=== PATIENT | female | born 1950 | race Caucasian/White ===

== ENCOUNTER 2017-12-19 08:40 | Inpatient (IN) ==
--- NOTE | 2017-12-19 11:23 | Emergency Department Note ---
START Narrative - START START: I examined this patient and my medical decision-making was reviewed with the STOCK OR DELIVERY CLERK/PA/Advanced Practice Nurse/Resident Physician. I agree with the documented findings, disposition and treatment plan as described except to the extent set forth below. Patient does have pain over the wound on the lateral distal aspect of the right upper back and I did open the wound and remove the packing and there is very minimal pink coloration around the edges of the wound but no purulence, crepitus , ecchymosis, ecchymosis and the wound does look good and does not look infected. The patient did see Dr. Rey her archives specialist 4 days ago and the care will be further discussed with him as far as ongoing care. She does have some pain with range of motion but does have good range of motion of the knee. While she is lying in bed at this time does not have pain. 1122 I did review the patient's EKG showing normal sinus rhythm with rate of 87 with some nonspecific T-wave changes. This is done as a preoperative EKG on request from orthopedics. [id number]
[2017-12-19] MEDS ORDERED: Naloxone 0.4 MG/ML INJ IVP PRN (14:19)
[2017-12-19 14:25] LABS: Prothrombin Time 10.8 Seconds (9.4-12.1)
[2017-12-19 14:26] LABS: Basophils # 0.1 K/mcL (0.0-0.2); Basophils % 1.2 %; Eosinophils # 0.3 K/mcL (0.0-0.6); Eosinophils % 4.1 %; Hematocrit 45.4 % (35.3-44.9); Hemoglobin 14.4 g/dL (11.5-15.4); Immature Granulocytes % 0.3 % (0-4); Mean Corpuscular HGB Conc 31.7 g/dL (31.6-35.5); Mean Corpuscular Hemoglobin 27.1 pg (28.0-33.3); Mean Corpuscular Volume 85.5 fL (83.0-100.0); Mean Platelet Volume 9.6 fL (9.4-12.4); Monocytes # 0.5 K/mcL (0.0-1.3); Platelet Count 308 K/mcL (140-400); Red Blood Count 5.31 M/mcL (3.82-4.97); Red Cell Distribution Width 15.1 % (11.5-14.5); Segmented Neutrophils % 58.4 %
--- NOTE | 2017-12-19 14:37 | Internal Med History&Physical ---
Date of Encounter: 12/19/17 Time of Encounter: 14:33 Assessment and Plan (1) Femur fracture, right Current visit: Yes Status: Acute S/P ORIF with internal fixation on 08/12. Returns today with acute pain which began overnight. Unable to bare weight d/t pain. Imaging reveals fracture of the femoral plate with increased angulation of the right femur fracture. The patient will need surgical repair. -consult Ortho- Dr. Winston at bedside and plans to taker her to OR on Friday for surgical repair. His recommendation are for ATB coverage for 48 hours prior to surgery -ATB Vanc and Zosyn; Prior wound cultures grew MRSA -pain management with oxycodone -bedrest -apply knee immobilization device Qualifiers: Qualified Code(s): S72.91XA - Unspecified fracture of right femur, initial encounter for closed fracture (2) DVT prophylaxis Current visit: Yes Status: Acute Heparin 5000 units SC BID Internal Medicine - H&P: HPI Chief complaint: pain in RLE, unable to bare weight Admitted From: Home Plans for Post Hospital Care: Home History of present illness: Ms. Wells is a 67 year old female who presents to [facility] today with difficulty ambulating d/t inability to bare weight on her right leg. She has undergone a Right open reduction internal fixation femur fracture on 08/12. She reports that last night she began experiencing intense pain in her right leg with weight baring and with ROM. She denies any new falls or trauma. She notes that she had an appointment today at her wound clinic d/t a chronic wound on her right leg s/p surgery. While attempting to get out of the car and into the hospital (an estimated 50ft walk) it took her 15 minutes d/t intense pain with weight baring. She decided to come to the ED today and was found to have a fracture of the femoral plate with an increased angulation at the prior site of femur fracture. Past Med Surg Social Fam HX - Past Medical History Medical history: arthritis, GERD, osteoporosis Psychiatric history: anxiety, depression - Past Surgical History Surgical History: herniorrhaphy, hysterectomy, knee replacement - Social History Smoking Status: Never smoker Smokeless Tobacco Status: No Alcohol use: none Drug use: none - Family History Mother Adopted: No Family Member Ethnicity: Non- Living Status: Hx Family Cardiac Disorders: Yes Hx Family Respiratory Disorders: No Hx Family Cancer: No Hx Family GI Disorders: No Hx Family Endocrine Disorder: Yes Hx Family Neuromuscular Disorders: No Hx Family Neurologic Disorders: No Hx Family HEENT Disorders: No Hx Family Autoimmune Disorders: No Father Family Member Ethnicity: Non- Living Status: Hx Family Cardiac Disorders: Yes Hx Family Respiratory Disorders: No Hx Family Cancer: Yes Hx Family GI Disorders: No Hx Family Endocrine Disorder: Yes Hx Family Neuromuscular Disorders: No Hx Family Neurologic Disorders: No Hx Family HEENT Disorders: No Hx Family Autoimmune Disorders: No Internal Medicine - H&P: Meds Amitriptyline [Elavil] 50 mg PO HS 08/04/17 [History] Buspirone HCl [Buspar] 5 mg PO TID 08/04/17 [History] Docusate [Colace] 100 mg PO DAILY 08/04/17 [History] Ferrous Sulfate [Iron] 325 mg PO DAILY 08/04/17 [History] Magnesium Oxide [Magnesium] 400 mg PO DAILY 08/04/17 [History] Omeprazole [PriLOSEC] 20 mg PO DAILY 08/04/17 [History] Potassium 99 mg PO DAILY 08/04/17 [History] Ranitidine HCl [Acid Cargo Tank Mechanic] 150 mg PO BID 08/04/17 [History] Zinc Sulfate 220 mg PO DAILY 08/04/17 [History] rOPINIRole [Requip] 1 mg PO HS 08/04/17 [History] Sertraline [Zoloft] 50 mg PO DAILY 12/19/17 [History] 3 Allergy/AdvReac Type Severity Reaction Status Date / Time No Known Allergies Allergy Verified 08/04/17 19:33 All Systems PM: A 10-system review of systems was performed and is negative for pertinent findings except as documented above in the HPI. - Constitutional Constitutional: no chills, no fever(s), no night sweats - Cardiovascular Cardiovascular ROS IM: no chest pain, no diaphoresis, no dyspnea, no lightheadedness, no palpitations, no syncope - Respiratory Respiratory: no cough, no dyspnea, no wheezing, no excessive phlegm production - Musculoskeletal Musculoskeletal ROS IM: as per HPI, arthralgias, limited range of motion, myalgias, no numbness, no tingling - Integumentary Additional comments: Chronic right leg wound s/p ORIF of femoral fracture - Neurological Neurological ROS: no confusion, no convulsions, no focal weakness, no numbness, no tingling, no tremor(s) - Constitutional Vitals: Temp Pulse Resp BP Pulse Ox 98.4 F 81 18 145/94 95 12/19/17 08:42 12/19/17 08:42 12/19/17 08:42 12/19/17 08:42 12/19/17 08:42 General appearance: Present: cooperative, mild distress, A&O X 3, answers questions appropriately - Head Head exam: Present: atraumatic, normocephalic - Eye Pupils: Present: PERRL - Respiratory Respiratory exam: Present: CTAB. Absent: accessory muscle use, rales, rhonchi, wheezes - Cardiovascular Cardiovascular exam: Present: RRR, +S1, +S2. Absent: diastolic murmur, gallop, rubs, systolic murmur - GI/Abdominal GI/Abdominal exam: Present: normal bowel sounds, soft, no peritoneal signs. Absent: distended, tenderness - Extremities Exam Extremities exam: Present: normal capillary refill, tenderness (of Right lateral thigh), warm, radial pulses palpable and symmetrical. Absent: calf tenderness, cyanotic, full ROM, pedal edema - Neurological Exam Neurological exam: Present: alert, oriented X3. Absent: facial droop, speech deficit - Skin Skin exam: Present: dry, intact Additional comments: Chronic open wound on the lateral distal aspect of the right thigh. The wound bed is pink with good margins. No purulent drainage noted. Internal Med - H&P Results - Labs CBC & Chem 7: 12/19/17 14:13 12/19/17 14:13 Labs: Short CBC 12/19/17 Range/Units 14:13 WBC 6.8 (4.3-11.1) K/mcL Hgb 14.4 (11.5-15.4) g/dL Hct 45.4 H (35.3-44.9) % Plt Count 308 (140-400) K/mcL Neutrophils # 4.0 (1.6-8.9) K/mcL - Impressions Impressions Femur X-Ray 12/19/17 12:21 IMPRESSION: 1. Fracture of the femoral plate with increased angulation at the fracture site in the femur. 2. Soft tissue gas again seen laterally overlying the distal femur. D/ / 12/19/2017 13:10:22 Chi Menendez MD / normaay Interpreting Provider: Chi Menendez MD
--- NOTE | 2017-12-19 14:42 | Event Note ---
Date of Encounter: 12/19/17 Time of Encounter: 14:40 Patient was seen and examined. Agree with the H&P as written by Eitan Dos Santos NP. Patient is 67 years old female who presents with difficulty ambulating. Recently had ORIF of her right femur fracture in July. Has been dealing with chronic wound on that side since. Decided to come to the ED where imaging study showed fracture of the femoral plate with increased angulation at the fracture site. Dr. Winston from orthopedics was consulted in the ED and recommended admission with antibiotics with plans to operate on Friday. Patient is hemodynamically stable. We will order an EKG for preop clearance. We will put on antibiotics. Pain control. Check basic labs.
[2017-12-19 14:46] LABS: Alanine Aminotransferase 7 Units/L (7-52); Albumin 4.4 g/dL (3.5-5.7); Albumin/Globulin Ratio 1.7 (1.1-2.2); Alkaline Phosphatase 101 Units/L (34-104); Aspartate Amino Transferase 16 Units/L (13-39); BUN/Creatinine Ratio 12 (6-26); Bilirubin,Total 0.5 mg/dL (0.3-1.0); Blood Urea Nitrogen 12 mg/dL (8-23); Calcium 9.7 mg/dL (8.6-10.3); Carbon Dioxide 25 mEq/L (23-29); Chloride 107 mEq/L (98-107); Globulin 2.6 g/dL (2.4-3.5); Glucose 82 mg/dL (70-105); Osmolality,Calculated 291 (280-300); Potassium 3.8 mEq/L (3.5-5.1); Sodium 141 mEq/L (136-145); eGFR For Non-African Americans 55 (> 60)
--- NOTE | 2017-12-19 14:54 | Orthopedic Consult Note ---
<Geetha Nice - Last Filed: 12/19/17 14:51> Date of Encounter: 12/19/17 Time of Encounter: 14:51 Assessment and Plan (1) Femur fracture, right Current Visit: Yes Status: Acute Discussed treatment plan with patient. Plan for Right Femur Removal of Hardware, Revision Open reduction and internal fixation of Right Femur on FRIDAY with . NPO on Friday after midnight. Pain management. Knee immobilizer needed for support. NWB to RLE. DVT prophylaxis needed - foot pumps. ICE and elevate as tolerated for swelling. Continue with daily dressing changes to Right thigh, along with cleanses. Medical clearance for surgery needed prior to Friday. Consent obtained and reviewed with patient. Patient signed. (2) Status post open reduction with internal fixation of fracture Current Visit: No Status: Acute History of Present Illness Chief complaint: Right Leg Pain HPI: Ms. Wells is a 67 year old female.- difficulty ambulating d/t inability to weightbear on her right leg. s/p Right open reduction internal fixation femur fracture on 08/12. She reports that last night she began experiencing intense pain in her right leg with weight baring and with ROM. She denies any new falls or trauma. She notes that she had an appointment today at her wound clinic d/t a chronic wound on her right leg s/p surgery. Filomena rodriguez attempting to get out of the car and into the hospital (an estimated 50ft walk) it took her 15 minutes d/t intense pain with weight baring. She decided to come to the ED today and was found to have a fracture of the femoral plate with an increased angulation at the prior site of femur fracture. Past Med Surg Social Fam HX - Past Medical History Medical history: arthritis, GERD, osteoporosis Psychiatric history: anxiety, depression - Past Surgical History Surgical History: herniorrhaphy, hysterectomy, knee replacement - Social History Smoking Status: Never smoker Smokeless Tobacco Status: No Alcohol use: none Drug use: none - Family History Mother Adopted: No Family Member Ethnicity: Non- Living Status: Hx Family Cardiac Disorders: Yes Hx Family Respiratory Disorders: No Hx Family Cancer: No Hx Family GI Disorders: No Hx Family Endocrine Disorder: Yes Hx Family Neuromuscular Disorders: No Hx Family Neurologic Disorders: No Hx Family HEENT Disorders: No Hx Family Autoimmune Disorders: No Father Family Member Ethnicity: Non- Living Status: Hx Family Cardiac Disorders: Yes Hx Family Respiratory Disorders: No Hx Family Cancer: Yes Hx Family GI Disorders: No Hx Family Endocrine Disorder: Yes Hx Family Neuromuscular Disorders: No Hx Family Neurologic Disorders: No Hx Family HEENT Disorders: No Hx Family Autoimmune Disorders: No Medications and Allergies Amitriptyline [Elavil] 50 mg PO HS 08/04/17 [History] Buspirone HCl [Buspar] 5 mg PO TID 08/04/17 [History] Docusate [Colace] 100 mg PO DAILY 08/04/17 [History] Ferrous Sulfate [Iron] 325 mg PO DAILY 08/04/17 [History] Magnesium Oxide [Magnesium] 400 mg PO DAILY 08/04/17 [History] Omeprazole [PriLOSEC] 20 mg PO DAILY 08/04/17 [History] Potassium 99 mg PO DAILY 08/04/17 [History] Ranitidine HCl [Acid Pet Store Merchandiser] 150 mg PO BID 08/04/17 [History] Zinc Sulfate 220 mg PO DAILY 08/04/17 [History] rOPINIRole [Requip] 1 mg PO HS 08/04/17 [History] Sertraline [Zoloft] 50 mg PO DAILY 12/19/17 [History] 3 Allergy/AdvReac Type Severity Reaction Status Date / Time No Known Allergies Allergy Verified 08/04/17 19:33 All Systems Reviewed: The remainder of the systems were reviewed and are negative Physical Exam - Constitutional Vitals: Temp Pulse Resp BP Pulse Ox 98.4 F 81 18 145/94 95 12/19/17 08:42 12/19/17 08:42 12/19/17 08:42 12/19/17 08:42 12/19/17 08:42 Results - Labs Result Diagrams: 12/19/17 14:13 12/19/17 14:13 Labs: Abnormal lab results RBC 5.31 M/mcL (3.82-4.97) H 12/19/17 14:13 Hct 45.4 % (35.3-44.9) H 12/19/17 14:13 MCH 27.1 pg (28.0-33.3) L 12/19/17 14:13 RDW 15.1 % (11.5-14.5) H 12/19/17 14:13 Est GFR (Non-Af Amer) 55 (> 60) L 12/19/17 14:13 H & H 12/19/17 Range/Units 14:13 Hgb 14.4 (11.5-15.4) g/dL Hct 45.4 H (35.3-44.9) % All other labs normal. Consult Discharge Plan - Plan Referrals: Ashlie Shea, PROFESSOR OF MECHANICAL ENGINEERING [Primary Care Provider] - <Elbert Winston Eleno - Last Filed: 12/19/17 15:58> Date of Encounter: 12/19/17 History of Present Illness HPI: Patient was seen in wound care on Friday by Dr. Rey who did a large excision of the small open area. On physical exam the patient is alert and oriented 3 no acute distress Right lower extremity is neurovascularly intact Patient has a 2 x 3 cm open area on the distal aspect of the right lower thigh lateral side. This was placed in a sterile dressing. X-rays were reviewed and showed with the patient patient had a comminuted fracture periprosthetic back in July of last year she appears to have healed the distal comminuted portion with the implant well fixed. She has a angulated midshaft fracture with fracture of the femoral plate. The patient is recommended for removal of hardware and revision open reduction internal fixation. Patient will also undergo a wide excision with wound closure of the open area. Patient will be admitted for IV antibiotics to help sterilize the field and undergo surgery Friday morning. Appropriate equipment will be ordered and to deal with this complicated problem. We reviewed the risks and benefits as well as recovery. All questions were answered. The patient agreed to this treatment plan and appeared to understand the plan is reviewed. All Systems Reviewed: The remainder of the systems were reviewed and are negative Physical Exam - Constitutional Vitals: Temp Pulse Resp BP Pulse Ox 98.3 F 76 16 155/96 94 12/19/17 15:53 12/19/17 15:53 12/19/17 15:53 12/19/17 15:53 12/19/17 15:53 Results - Labs Result Diagrams: 12/19/17 14:13 12/19/17 14:13 Labs: Abnormal lab results RBC 5.31 M/mcL (3.82-4.97) H 12/19/17 14:13 Hct 45.4 % (35.3-44.9) H 12/19/17 14:13 MCH 27.1 pg (28.0-33.3) L 12/19/17 14:13 RDW 15.1 % (11.5-14.5) H 12/19/17 14:13 Est GFR (Non-Af Amer) 55 (> 60) L 12/19/17 14:13 H & H 12/19/17 Range/Units 14:13 Hgb 14.4 (11.5-15.4) g/dL Hct 45.4 H (35.3-44.9) % All other labs normal.
[2017-12-19] MEDS ORDERED: Vancomycin 1 EACH in 0.9 % Sodium Chloride 250 ML IVPB SCH (15:00)
[2017-12-19] MEDS: *HR* OxyCODONE/APAP 5/325 TABLET PO PRN (15:54)
[2017-12-19] MEDS: *HR* Heparin 5,000 UNIT/ML VIAL SQ SCH (17:05)
--- NOTE | 2017-12-19 17:48 | Electrocardiograph Report ---
[place] [id number] Test Date: 2017-12-19 Pat Name: Flaca Wells Department: 102 Room: [facility] Gender: F Mechanical Maintenance: Zahra : 1950 Requested By: Garry Salinas Order Number: [id number] Reading MD: Harleen Pascal Measurements Intervals [place] Rate: 87 P: 74 OR: 142 QRS: 81 QRSD: 102 T: 69 QT: 385 QTc: 429 Interpretive Statements SINUS RHYTHM NONSPECIFIC T-WAVE ABNORMALITY Electronically Signed On 12-19-2017 17:47:09 EST by Harleen Pascal
[2017-12-19] MEDS: Famotidine 20 MG TABLET PO SCH (20:08)
[2017-12-19] MEDS: rOPINIRole 1 MG TABLET PO SCH (20:08)
[2017-12-20] MEDS: *HR* OxyCODONE/APAP 5/325 TABLET PO PRN (00:59)
[2017-12-20 02:02] LABS: Hematocrit 39.5 % (35.3-44.9); Mean Corpuscular HGB Conc 31.4 g/dL (31.6-35.5); Mean Corpuscular Hemoglobin 27.1 pg (28.0-33.3); Mean Corpuscular Volume 86.2 fL (83.0-100.0); Platelet Count 279 K/mcL (140-400); Red Blood Count 4.58 M/mcL (3.82-4.97); Red Cell Distribution Width 15.3 % (11.5-14.5)
[2017-12-20 02:03] LABS: Hemoglobin 12.4 g/dL (11.5-15.4)
[2017-12-20 02:23] LABS: Calcium 8.6 mg/dL (8.6-10.3); Potassium 3.6 mEq/L (3.5-5.1)
[2017-12-20] MEDS: *HR* Heparin 5,000 UNIT/ML VIAL SQ SCH ×2 (05:56→16:36)
[2017-12-20] MEDS ORDERED: *HR* OxyCODONE Immed Rel 5 MG TABLET PO PRN (07:46)
--- NOTE | 2017-12-20 07:46 | Orthopedics Progress Note ---
Date of Encounter: 12/20/17 Time of Encounter: 07:45 Subjective Interval history: Patient seen this morning for surgery Friday on IV antibiotics AND transferred patient resting comfortably plan reviewed Objective Vital signs: Vital Signs Temp Pulse Resp BP Pulse Ox 12/20/17 05:12 97.6 F 84 17 109/80 94 12/20/17 00:40 97.9 F 87 17 111/70 96 12/19/17 18:50 98.1 F 93 18 107/74 94 12/19/17 15:53 98.3 F 76 16 155/96 94 Intake and Output 12/19/17 12/19/17 12/20/17 15:59 23:59 07:59 Intake Total 0 / 0 100 / 100 400 / 400 Balance 0 / 0 100 / 100 400 / 400 Intake: IV Fluids 100 / 100 Zosyn 3.375 GM In 0.9 % Sodium 100 / 100 Chloride 100 ML @ 25 mls/hr IVPB Q8HR [facility] Rx#:[id number] Oral 0 / 0 400 / 400 Other: # Voids 1 - Labs CBC & BMP: 12/20/17 01:44 12/20/17 01:44 Labs: Abnormal lab results MCH 27.1 pg (28.0-33.3) L 12/20/17 01:44 MCHC 31.4 g/dL (31.6-35.5) L 12/20/17 01:44 RDW 15.3 % (11.5-14.5) H 12/20/17 01:44 Chloride 110 mEq/L (98-107) H 12/20/17 01:44 Est GFR ( Amer) 55 (> 60) L 12/20/17 01:44 Est GFR (Non-Af Amer) 45 (> 60) L 12/20/17 01:44 Consult Discharge Plan - Plan Referrals: Ashlie Shea, TANKERMAN [Primary Care Provider] -
--- NOTE | 2017-12-20 08:42 | Internal Med Progress Note ---
Date of Encounter: 12/20/17 Time of Encounter: 09:21 - Assessment and plan (1) Femur fracture, right Current Visit: Yes Status: Acute Assessment and plan: Fracture of femoral plate. Prior ORIF in July 2017. Open wound present at right lateral thigh nonhealing from prior surgery. Orthopedics following. Recommend IV antibiotics at this time. Plan for surgery on Friday. Continue supportive care. Pain control. Qualifiers: Encounter type: initial encounter Femur location: distal Fracture type: closed Fracture morphology: unspecified fracture morphology Qualified Code(s ): S72.401A - Unspecified fracture of lower end of right femur, initial encounter for closed fracture (2) DVT prophylaxis Current Visit: Yes Status: Acute Assessment and plan: With subcutaneous heparin - Subjective Interval history: Patient is feeling better today. Continues to have pain but well controlled. Denies any fever or chills overnight. No nausea or vomiting. - Constitutional Vitals: Temp Pulse Resp BP Pulse Ox 97.6 F 76 16 107/68 96 12/20/17 07:49 12/20/17 07:49 12/20/17 07:49 12/20/17 07:49 12/20/17 07:49 General appearance: Present: cooperative, mild distress, A&O X 3, answers questions appropriately - Neck Neck exam general surgery: Present: supple, trachea midline. Absent: lymphadenopathy - Respiratory Respiratory exam: Present: CTAB. Absent: accessory muscle use, rales, rhonchi, wheezes - Cardiovascular Cardiovascular exam: Present: RRR, +S1, +S2. Absent: diastolic murmur, gallop, rubs, systolic murmur - GI/Abdominal GI/Abdominal exam: Present: normal bowel sounds, soft, no peritoneal signs. Absent: distended, tenderness - Extremities Exam Extremities exam: Present: warm, radial pulses palpable and symmetrical. Absent : calf tenderness, cyanotic, pedal edema Additional comments: Open wound in right thigh at prior surgical site. Clean base. No discharge noted. - Neurological Exam Neurological exam: Present: CN II-XII intact, oriented X3, no focal deficits, strengths equal and symetr throughout. Absent: facial droop, speech deficit Internal Medicine: Result - Labs CBC & Chem 7: 12/20/17 01:44 12/20/17 01:44 Labs: Short CBC 12/19/17 12/20/17 Range/Units 14:13 01:44 WBC 6.8 5.1 (4.3-11.1) K/mcL Hgb 14.4 12.4 D (11.5-15.4) g/dL Hct 45.4 H 39.5 (35.3-44.9) % Plt Count 308 279 (140-400) K/mcL Neutrophils # 4.0 (1.6-8.9) K/mcL BMP 12/19/17 12/20/17 14:13 01:44 Sodium 141 141 Potassium 3.8 3.6 Chloride 107 110 H Carbon Dioxide 25 24 BUN 12 16 Creatinine 1.01 1.19 Glucose 82 104 Calcium 9.7 8.6 Liver Function 12/19/17 Range/Units 14:13 Total Bilirubin 0.5 (0.3-1.0) mg/dL AST 16 (13-39) Units/L ALT 7 (7-52) Units/L Alkaline Phosphatase 101 (34-104) Units/L Albumin 4.4 (3.5-5.7) g/dL - ABG Interpretation ABG results: PT/INR, D-dimer PT 10.8 Seconds (9.4-12.1) 12/19/17 14:13 Consult Discharge Plan - Plan Referrals: Ashlie Shea, TRACY [Primary Care Provider] -
[2017-12-20] MEDS: Zinc Sulfate 220 MG CAPSULE PO SCH (09:00)
[2017-12-20] MEDS: Famotidine 20 MG TABLET PO SCH ×2 (09:00→20:15)
[2017-12-20] MEDS: Magnesium Oxide 400 MG TABLET PO SCH (09:00)
[2017-12-20] MEDS: Piperacillin/Tazobactam 3.375 GM in 0.9 % Sodium Chloride Mini Bag 100 ML IVPB SCH ×2 (09:01→16:36)
[2017-12-20] MEDS: (Potassium [Potassium] 99 MG) PO SCH (09:01)
[2017-12-20] MEDS ORDERED: Piperacillin/Tazobactam 3.375 GM VIAL ONE (16:32)
[2017-12-20] MEDS: rOPINIRole 1 MG TABLET PO SCH (20:15)
[2017-12-21] MEDS: Piperacillin/Tazobactam 3.375 GM in 0.9 % Sodium Chloride Mini Bag 100 ML IVPB SCH ×4 (00:12→23:45)
[2017-12-21] MEDS: *HR* Heparin 5,000 UNIT/ML VIAL SQ SCH ×2 (06:32→17:40)
[2017-12-21] MEDS: Magnesium Oxide 400 MG TABLET PO SCH (08:57)
[2017-12-21] MEDS: Famotidine 20 MG TABLET PO SCH ×2 (08:58→21:23)
[2017-12-21] MEDS: (Potassium [Potassium] 99 MG) PO SCH (08:58)
[2017-12-21] MEDS: Zinc Sulfate 220 MG CAPSULE PO SCH (08:58)
--- NOTE | 2017-12-21 09:26 | Internal Med Progress Note ---
Date of Encounter: 12/21/17 Time of Encounter: 09:00 - Assessment and plan (1) Femur fracture, right Current Visit: Yes Status: Acute Assessment and plan: Plan surgery tomorrow. Continue IV antibiotics per orthopedics recommendations. Moderate risk for complications. From a medical standpoint, patient is cleared for surgery at this time. She has intermediate risk for complications from anesthesia and surgery. Qualifiers: Encounter type: initial encounter Femur location: distal Fracture type: closed Fracture morphology: unspecified fracture morphology Qualified Code(s ): S72.401A - Unspecified fracture of lower end of right femur, initial encounter for closed fracture (2) DVT prophylaxis Current Visit: Yes Status: Acute Assessment and plan: Continue subcutaneous heparin - Subjective Interval history: Patient is doing well. Sitting up in bed and eating breakfast. Pain in right leg is well controlled - Constitutional Vitals: Temp Pulse Resp BP Pulse Ox 97.9 F 87 16 154/86 95 12/21/17 06:41 12/21/17 06:41 12/21/17 06:41 12/21/17 06:41 12/21/17 06:41 General appearance: Present: cooperative, mild distress, A&O X 3, obese, answers questions appropriately - Neck Neck exam general surgery: Present: supple, trachea midline. Absent: lymphadenopathy - Respiratory Respiratory exam: Present: CTAB. Absent: accessory muscle use, rales, rhonchi, wheezes - Cardiovascular Cardiovascular exam: Present: RRR, +S1, +S2. Absent: diastolic murmur, gallop, rubs, systolic murmur - GI/Abdominal GI/Abdominal exam: Present: normal bowel sounds, soft, no peritoneal signs. Absent: distended, tenderness - Extremities Exam Extremities exam: Present: tenderness (Just above the right knee), warm, radial pulses palpable and symmetrical. Absent: calf tenderness, cyanotic, pedal edema - Neurological Exam Neurological exam: Present: oriented X3, no focal deficits. Absent: facial droop, speech deficit Internal Medicine: Result - Labs CBC & Chem 7: 12/20/17 01:44 12/20/17 01:44 - ABG Interpretation ABG results: PT/INR, D-dimer PT 10.8 Seconds (9.4-12.1) 12/19/17 14:13 Consult Discharge Plan - Plan Referrals: Ashlie Shea, NURSING STUDENT [Primary Care Provider] -
--- NOTE | 2017-12-21 17:48 | Orthopedics Progress Note ---
Date of Encounter: 12/21/17 Time of Encounter: 17:46 Subjective Principal diagnosis: Femur fracture Interval history: The patient is without complaints. Afebrile vital signs are stable. Has dressing to right lower extremity. Neurovascularly intact with regard to bilateral lower extremities. Assessment :stable. Plan mobilize ,continue analgesics, plan for surgical intervention per Dr. Winston in a.m. Objective Vital signs: Vital Signs Temp Pulse Resp BP Pulse Ox 12/21/17 14:08 97.9 F 87 16 126/87 95 12/21/17 11:07 97.7 F 84 16 123/83 96 12/21/17 06:41 97.9 F 87 16 154/86 95 12/20/17 23:27 97.8 F 84 17 152/91 94 12/20/17 18:46 98.4 F 77 17 127/83 94 Intake and Output 12/21/17 12/21/17 12/21/17 07:59 15:59 23:59 Intake Total 100 / 100 500 / 500 Output Total 550 / 550 Balance 100 / 100 -50 / -50 Intake: IV Fluids 100 / 100 100 / 100 Zosyn 3.375 GM In 0.9 % Sodium 100 / 100 100 / 100 Chloride (Mini-Bag +) 100 ML @ 25 mls/hr IVPB Q8HR [facility] Rx#: [id number] Oral 400 / 400 Output: Urine 550 / 550 Other: Meal Lunch Percent of Meal Consumed 75% Stool Size Moderate Stool Consistency formed Stool Color Brown - Labs CBC & BMP: 12/20/17 01:44 12/20/17 01:44 Labs: Abnormal lab results MCH 27.1 pg (28.0-33.3) L 12/20/17 01:44 MCHC 31.4 g/dL (31.6-35.5) L 12/20/17 01:44 RDW 15.3 % (11.5-14.5) H 12/20/17 01:44 Chloride 110 mEq/L (98-107) H 12/20/17 01:44 Est GFR ( Amer) 55 (> 60) L 12/20/17 01:44 Est GFR (Non-Af Amer) 45 (> 60) L 12/20/17 01:44 Consult Discharge Plan - Plan Referrals: Ashlie Shea, MICROELECTRONICS TECHNICIAN [Primary Care Provider] -
--- NOTE | 2017-12-21 19:12 | Anesthesia Evaluation PreOp ---
Date of Encounter: 12/21/17 Time of Encounter: 19:10 - Past History Planned Operation: Removal Hardware, ORIF Right Femur Revision Cardiac History: Denies any Significant Hx Pulmonary History: Snore, ANA Dx (recently diagnosed) SKIAGRAPHER History: Other (RLS) Other Medical History: GERD, Other (RA, anxiety/depression) Anesthesia History: Past Anesthesia (hysterectomy), Problems (PONV) Alcohol Use: none Drug use: none Medications and Allergies Amitriptyline [Elavil] 50 mg PO HS 08/04/17 [History] Buspirone HCl [Buspar] 5 mg PO TID 08/04/17 [History] Docusate [Colace] 100 mg PO DAILY 08/04/17 [History] Ferrous Sulfate [Iron] 325 mg PO DAILY 08/04/17 [History] Magnesium Oxide [Magnesium] 400 mg PO DAILY 08/04/17 [History] Omeprazole [PriLOSEC] 20 mg PO DAILY 08/04/17 [History] Potassium 99 mg PO DAILY 08/04/17 [History] Ranitidine HCl [Acid Manager [place]] 150 mg PO BID 08/04/17 [History] Zinc Sulfate 220 mg PO DAILY 08/04/17 [History] rOPINIRole [Requip] 1 mg PO HS 08/04/17 [History] Sertraline [Zoloft] 50 mg PO DAILY 12/19/17 [History] 3 Allergy/AdvReac Type Severity Reaction Status Date / Time No Known Allergies Allergy Verified 08/04/17 19:33 - Meds/Allergy Pre-op Review Medications Reviewed: Yes Allergies Reviewed: Yes Beta Blockers on Current Med List: No Anesthesia Results - Labs 12/20/17 01:44 12/20/17 01:44 - Imaging EKG: report reviewed (12/19/2017 SINUS RHYTHM NONSPECIFIC T-WAVE ABNORMALITY) Additional studies: Echocardiogram Date of Study: 08/05/2017 Impressions: LVEF 60-65%. Normal LV chamber size, wall thickness and function. Mild left ventricular diastolic dysfunction. Mildly dilated right ventricle with normal function. Mild tricuspid regurgitation. Estimated RVSP is 56 mmHg. Severe pulmonary hypertension. Anesthesia Exam Vital Signs/O2 Sat, Most Current Temp Pulse Resp BP Pulse Ox 97.9 F 87 16 126/87 95 12/21/17 14:08 12/21/17 14:08 12/21/17 14:08 12/21/17 14:08 12/21/17 14:08 Height: 5'1'' Weight: 186 lbs NPO (# of Hours): 8 Pain Scale: 0 (at rest) Pain Scale Used: Numeric (1 - 10) - HEENT Pupil (Motor): EOMI Mallampati: II Teeth: Edentulous Oral Opening: Greater than 3 - SKIAGRAPHER LOC: Oriented SKIAGRAPHER Motor: Normal RUE, Normal LUE, Normal RLE, Normal LLE, Normal Face SKIAGRAPHER Sensory: Normal: RUE, LUE, RLE, LLE, Face - Cardiac Rhythm: Regular Murmur: None - Pulmonary Breath Sounds: bilateral Clear Respiratory Effort: Symmetrical Anesthesia Assess/Plan ASA Score: 2 Modified [place] Scale for Level of Consciousness: Cooperative, oriented, and tranquil Anesthetic Plan: General, Regional Monitoring Plan: Standard Monitors Recovery Plan: PACU
[2017-12-21] MEDS: rOPINIRole 1 MG TABLET PO SCH (21:23)
[2017-12-22 00:46] LABS: Hemoglobin 12.8 g/dL (11.5-15.4)
[2017-12-22] MEDS: *HR* Heparin 5,000 UNIT/ML VIAL SQ SCH ×2 (04:04→19:01)
--- NOTE | 2017-12-22 06:41 | Orthopedics Progress Note ---
Date of Encounter: 12/22/17 Time of Encounter: 06:41 Subjective Principal diagnosis: Femur fracture Interval history: Patient seen this morning for surgery today all questions answered. Objective Vital signs: Vital Signs Temp Pulse Resp BP Pulse Ox 12/22/17 06:18 98.6 F 86 18 137/84 94 12/22/17 04:21 98.3 F 97 17 161/80 96 12/22/17 00:13 98.2 F 99 18 160/85 98 12/21/17 19:20 98.5 F 102 18 168/89 95 12/21/17 14:08 97.9 F 87 16 126/87 95 12/21/17 11:07 97.7 F 84 16 123/83 96 Intake and Output 12/21/17 12/21/17 12/22/17 15:59 23:59 07:59 Intake Total 500 / 500 450 / 450 100 / 100 Output Total 550 / 550 950 / 950 250 / 250 Balance -50 / -50 -500 / -500 -150 / -150 Intake: IV Fluids 100 / 100 100 / 100 100 / 100 Zosyn 3.375 GM In 0.9 % Sodium 100 / 100 100 / 100 100 / 100 Chloride (Mini-Bag +) 100 ML @ 25 mls/hr IVPB Q8HR [facility] Rx#: [id number] Oral 400 / 400 350 / 350 0 / 0 Output: Urine 550 / 550 950 / 950 250 / 250 Other: Meal Lunch Dinner Percent of Meal Consumed 75% 100% Stool Size Moderate Large Stool Consistency formed loose soft Stool Color Brown # Voids 1 # Bowel Movements 1 Weight 87.543 kg Patient Weight 12/22/17 23:59 Weight 87.543 kg - Labs CBC & BMP: 12/22/17 00:32 12/20/17 01:44 Labs: Abnormal lab results MCH 27.1 pg (28.0-33.3) L 12/20/17 01:44 MCHC 31.4 g/dL (31.6-35.5) L 12/20/17 01:44 RDW 15.3 % (11.5-14.5) H 12/20/17 01:44 Chloride 110 mEq/L (98-107) H 12/20/17 01:44 Est GFR ( Amer) 55 (> 60) L 12/20/17 01:44 Est GFR (Non-Af Amer) 45 (> 60) L 12/20/17 01:44 - VTE Documentation of Mechanical Device: Venous foot pump, device Consult Discharge Plan - Plan Referrals: Ashlie Shea, TRACY [Primary Care Provider] -
[2017-12-22] MEDS ORDERED: Ethanol\\Acetic Acid\\Na Ace\\Ben 1,000 ML IRRIG.SOLN IR ONE ×2 (07:22→14:17)
[2017-12-22] MEDS ORDERED: *HR* Propofol 200 MG/20 ML VIAL IVP ONE ×2 (07:24→12:14)
[2017-12-22] MEDS ORDERED: *HR* FentaNYL (PF) 100 MCG/2 ML VIAL ONE ×2 (07:24→12:14)
[2017-12-22] MEDS ORDERED: *HR* Succinylcholine 200 MG/10 ML VIAL IVP ONE (07:26)
[2017-12-22] MEDS ORDERED: Lidocaine -MPF 2% 2 ML VIAL ONE ×4 (07:26→12:32)
[2017-12-22] MEDS ORDERED: Ketamine *HR* 500 MG/10 ML MDV ONE (07:27)
[2017-12-22] MEDS ORDERED: *HR* Morphine Sulfate/PF 10 MG/10 ML AMPUL ONE (07:27)
[2017-12-22] MEDS ORDERED: Lidocaine -MPF 4% 5 ML AMPUL ONE (07:29)
[2017-12-22] MEDS ORDERED: MORPHINE SUL Oral CONC 10 MG/0.5 ML ORAL.SYG SL PRN ×2 (07:32→17:36)
[2017-12-22] MEDS ORDERED: *HR* Labetalol 20 MG/4 ML SYRINGE IVP PRN (07:32)
[2017-12-22] MEDS ORDERED: *HR* Promethazine 25 MG/ML VIAL IVP PRN ×2 (07:32→17:36)
[2017-12-22] MEDS ORDERED: *HR* OxyCODONE Immed Rel 5 MG TABLET PO PRN ×3 (07:32→17:36)
[2017-12-22] MEDS ORDERED: Acetaminophen IV 1,000 MG/100 ML INFUS..BTL ONE (07:36)
[2017-12-22] MEDS ORDERED: Scopolamine Patch 1.5 MG PATCH.TD72 TD ONE (07:36)
[2017-12-22] MEDS ORDERED: *HR* FentaNYL PATCH 25 MCG PATCH TD SCH (07:45)
--- NOTE | 2017-12-22 08:07 | Orthopedic Operative Note ---
Date of procedure: 12/22/17 Pre-op diagnosis: Right femur nonunion Post-op diagnosis: same Procedure: Patient brought to the operating room placed on the operating table after heart monitor was hooked up patient noted to be in trigeminy. This is a new onset change and rhythm. Case was discussed with cardiology patient was transferred to holding area. Anesthesia: none Surgeon: Elbert Winston Was there an assistant director of security present: No Estimated blood loss (cc): 0 Condition: stable Disposition: same day
--- NOTE | 2017-12-22 09:34 | Orthopedics Progress Note ---
Date of Encounter: 12/22/17 Time of Encounter: 09:33 Subjective Principal diagnosis: Femur fracture Interval history: Reviewed the case this morning after the events in the operating room with the anesthesia provide in holding after transfer from the OR the patient is back in sinus rhythm. The patient is an urgent surgery with a combination of the nonunion failure fracture fixation and open wound. This was discussed with anesthesia as well as tile and marble installer earlier. Objective Vital signs: Vital Signs Temp Pulse Resp BP Pulse Ox 12/22/17 06:18 98.6 F 86 18 137/84 94 12/22/17 04:21 98.3 F 97 17 161/80 96 12/22/17 00:13 98.2 F 99 18 160/85 98 12/21/17 19:20 98.5 F 102 18 168/89 95 12/21/17 14:08 97.9 F 87 16 126/87 95 12/21/17 11:07 97.7 F 84 16 123/83 96 Intake and Output 12/21/17 12/22/17 12/22/17 23:59 07:59 15:59 Intake Total 450 / 450 100 / 100 Output Total 950 / 950 250 / 250 Balance -500 / -500 -150 / -150 Intake: IV Fluids 100 / 100 100 / 100 Zosyn 3.375 GM In 0.9 % Sodium 100 / 100 100 / 100 Chloride (Mini-Bag +) 100 ML @ 25 mls/hr IVPB Q8HR [facility] Rx#: [id number] Oral 350 / 350 0 / 0 Output: Urine 950 / 950 250 / 250 Other: Meal Dinner Percent of Meal Consumed 100% Stool Size Large Stool Consistency loose soft # Voids 1 # Bowel Movements 1 Weight 87.543 kg Patient Weight 12/22/17 23:59 Weight 87.543 kg - Labs CBC & BMP: 12/22/17 00:32 12/20/17 01:44 Labs: Abnormal lab results MCH 27.1 pg (28.0-33.3) L 12/20/17 01:44 MCHC 31.4 g/dL (31.6-35.5) L 12/20/17 01:44 RDW 15.3 % (11.5-14.5) H 12/20/17 01:44 Chloride 110 mEq/L (98-107) H 12/20/17 01:44 Est GFR ( Amer) 55 (> 60) L 12/20/17 01:44 Est GFR (Non-Af Amer) 45 (> 60) L 12/20/17 01:44 - VTE Documentation of Mechanical Device: Venous foot pump, device Consult Discharge Plan - Plan Referrals: Ashlie Shea, [employer] [Primary Care Provider] -
[2017-12-22] MEDS: Famotidine 20 MG TABLET PO SCH ×2 (10:08→21:31)
[2017-12-22] MEDS: (Potassium [Potassium] 99 MG) PO SCH (10:08)
[2017-12-22] MEDS: Magnesium Oxide 400 MG TABLET PO SCH (10:08)
[2017-12-22] MEDS: Zinc Sulfate 220 MG CAPSULE PO SCH (10:09)
--- NOTE | 2017-12-22 10:10 | Cardiology Consult Note ---
Date of Encounter: 12/22/17 Time of Encounter: 10:02 Assessment and Plan (1) Chest pain Current Visit: Yes Status: Acute Recent episode a week ago, atypical with PVCs, ischemic work up if surgery not urgent, ASA 81 mg daily after surgery Qualifiers: Chest pain type: unspecified Qualified Code(s): R07.9 - Chest pain, unspecified (2) Pre-operative cardiovascular examination Current Visit: No Status: Acute High risk due to Severe HTN on ECHO 2017 and Chest pain Patient can proceed to surgery if urgent If patient is to have non urgent surgery would recommend NST and ECHO Will discuss with Dr. Winston (3) Moderate to severe pulmonary hypertension Current Visit: No Status: Acute Severe Pul HTN on ECHO places patient at high risk for morbidity and mortality Pulmonary work up as an outpatient Discussion w patient/family: The assessment and plan as outlined above was discussed with the patient and/or family members who expressed understanding and agreement. All questions were answered. Thank you for involving us in the care of your patient. Please call with any questions. History of Present Illness Consult date: 12/22/17 Consult reason: Cardiac Clearance Chief complaint: PVCs History of present illness: Ms. Wells is a 67 year old female with h/o ANA, Severe pulm HTN and recent trigeminy on telemetry strips in preperation to have knee surgery. Patient denies any palpitations today in preperation to have surgery but admits to chest pain over last week. Her daughter and sister present in the room confirmed on and off RSCP over the last week with no aggravation or relieving factors. She has not had any recent ischemic work up but did have an ECHO last year. Patients functional capacity cannot be obtained due to inability to walk on knee. She describes PASTOR and relates it to her difficulty walking. Noted on her ECHO was a presevred EF however she also is found to have severe Pulm HTN. Her Pulm HTN may or may not be the cause of her chest pain. Dr. Winston stated surgery is urgent and if so no further work up is needed and patient should proceed with surgery. Her risk of cardiac events is high due to her severe pulm HTN and recent chest pain. If the patient was not proceeding to surgery she would require an ischemic work up. Will discuss findings with Dr. Winston Past Med Surg Social Fam HX - Past Medical History Medical history: arthritis, GERD, osteoporosis Psychiatric history: anxiety, depression - Past Surgical History Surgical History: herniorrhaphy, hysterectomy, knee replacement - Social History Smoking Status: Never smoker Smokeless Tobacco Status: No Alcohol use: none Drug use: none - Family History Mother Adopted: No Family Member Ethnicity: Non- Living Status: Hx Family Cardiac Disorders: Yes Hx Family Respiratory Disorders: No Hx Family Cancer: No Hx Family GI Disorders: No Hx Family Endocrine Disorder: Yes Hx Family Neuromuscular Disorders: No Hx Family Neurologic Disorders: No Hx Family HEENT Disorders: No Hx Family Autoimmune Disorders: No Father Family Member Ethnicity: Non- Living Status: Hx Family Cardiac Disorders: Yes Hx Family Respiratory Disorders: No Hx Family Cancer: Yes Hx Family GI Disorders: No Hx Family Endocrine Disorder: Yes Hx Family Neuromuscular Disorders: No Hx Family Neurologic Disorders: No Hx Family HEENT Disorders: No Hx Family Autoimmune Disorders: No Medications and Allergies Amitriptyline [Elavil] 50 mg PO HS 08/04/17 [History] Buspirone HCl [Buspar] 5 mg PO TID 08/04/17 [History] Docusate [Colace] 100 mg PO DAILY 08/04/17 [History] Ferrous Sulfate [Iron] 325 mg PO DAILY 08/04/17 [History] Magnesium Oxide [Magnesium] 400 mg PO DAILY 08/04/17 [History] Omeprazole [PriLOSEC] 20 mg PO DAILY 08/04/17 [History] Potassium 99 mg PO DAILY 08/04/17 [History] Ranitidine HCl [Acid Division Plant Engineer] 150 mg PO BID 08/04/17 [History] Zinc Sulfate 220 mg PO DAILY 08/04/17 [History] rOPINIRole [Requip] 1 mg PO HS 08/04/17 [History] Sertraline [Zoloft] 50 mg PO DAILY 12/19/17 [History] 3 Allergy/AdvReac Type Severity Reaction Status Date / Time No Known Allergies Allergy Verified 08/04/17 19:33 All Systems Review: The remainder of the systems were reviewed and are negative Physical Examination Vital Signs, Last 4 Hours Temp Pulse Resp BP Pulse Ox 12/22/17 06:18 98.6 F 86 18 137/84 94 General: Conversant, No Apparent Distress HEENT: Atraumatic, Normocephaly, Mucus Membranes Moist Neck: No JVD, Normal carotid pulses Cardiac: Reg Rate and Rhythm, Normal S1 and S2, No Murmur Lungs: Normal Breath Sounds, No Wheeze, Rales, Rhonchi Neuro: Alert and responsive, No focal deficits noted Abdomen: Soft, Non-Tender Skin: No rashes noted on visualized skin Musculoskeletal: No Chest Wall Tenderness Extremities: No Clubbing, No Cyanosis, No Edema, Normal Pulses Results 12/22/17 00:32 12/20/17 01:44 Lab Results 12/22/17 00:32 Hgb 12.8 Hct 40.0 Consult Discharge Plan - Plan Referrals: Ashlie Shea, [employer] FILLER [Primary Care Provider] -
[2017-12-22] MEDS: Piperacillin/Tazobactam 3.375 GM in 0.9 % Sodium Chloride Mini Bag 100 ML IVPB SCH ×2 (10:16→23:36)
[2017-12-22] MEDS ORDERED: Dexamethasone 4 MG/ML VIAL ONE (12:14)
[2017-12-22] MEDS ORDERED: Ondansetron 4 MG/2 ML VIAL ONE (12:14)
[2017-12-22] MEDS ORDERED: *HR* Midazolam HCl 2 MG/2 ML VIAL ONE (12:14)
[2017-12-22] MEDS ORDERED: Ketorolac 30 MG/ML VIAL ONE (12:15)
[2017-12-22] MEDS ORDERED: *HR* PHENYLEPHRINE 1,000 MCG/10 ML SYRINGE IVP ONE ×5 (12:35→16:27)
[2017-12-22] MEDS ORDERED: Propofol 500 MG/50 ML INFUS..BTL ONE (12:38)
[2017-12-22] MEDS ORDERED: EPHEDrine 50 MG/ML VIAL ONE ×2 (13:51→14:13)
[2017-12-22] MEDS ORDERED: ceFAZolin 1,000 MG in Water for inj. (sterile) 20 ML 10 ML IVP ONE (14:11)
[2017-12-22] MEDS ORDERED: *HR* OxyCODONE/APAP 5/325 TABLET PO PRN (14:24)
[2017-12-22] MEDS ORDERED: Ondansetron 4 MG/2 ML VIAL IVP PRN (14:24)
--- NOTE | 2017-12-22 14:24 | Anesthesia Procedures ---
Date of Encounter: 12/22/17 Time of Encounter: 13:25 Procedures: Anesthesia - Epidural/Spinal Patient ID/Chart reviewed: Yes Patient examined: Yes Supplemental Oxygen: Nasal Cannula Supplemental Oxygen Rate (L/min): 3 Sedation: Versed (mg): 2 Sedation: Fentanyl (mcg): 100 Site Prep: Aseptic Technique, Sterile prep and drape, Povidone-Iodine 1% Patient position: upright Local Anesthetic: Lidocaine 1% Amount of Local Anesthetic used: 3 Interspace Used: L4-L5 Blood: No CSF: Yes Paresthesia: No Spinal Needle Gauge: 24 (PENCAN 3 1/2 NEEDLE) Spinal Dose: SEE PROCEDURE NOTE Procedure: PIV PATENT, FLUID BOLUS GIVEN PRIOR TO SPINAL. MONITORS ON, 02 AT 3LNC, SITTING UPRIGHT. STERILE PREP AND DRAPE WITH BETADINE. LOCAL LIDOCAINE 2% 3ML TO L4/L5. PENCAN 24G 3 1/2 WITH SPINAL NEEDLE/INTRODUCER TO L4/L5.. +CSF, NO PARATHESIA NO HEME NOTED. DOSED AT 1325. MEDS GIVEN: BUPIVICAINE 0.75% WITH DEXTROSE 1.6ML + DURAMORPH 200MCG.PF. VSS. PATIENT TOLERATED WELL. SPINAL ANESTHESIA/MAC SAFEST FOR PATIENT . Vitals + FHT's: Vital Signs - Last 8 Hours Temp Pulse Resp BP Pulse Ox 12/22/17 13:15 53 18 114/80 96 12/22/17 11:20 98.8 F 84 18 129/83 93 12/22/17 10:46 98.5 F 73 18 125/73 94 12/22/17 10:32 97.7 F 90 16 147/75 94 12/22/17 09:45 97.5 F L 87 17 143/87 95 Intake and Output 12/21/17 12/22/17 12/22/17 23:59 07:59 15:59 Intake Total 450 / 450 100 / 100 Output Total 950 / 950 250 / 250 Balance -500 / -500 -150 / -150 Intake: IV Fluids 100 / 100 100 / 100 Zosyn 3.375 GM In 0.9 % Sodium 100 / 100 100 / 100 Chloride (Mini-Bag +) 100 ML @ 25 mls/hr IVPB Q8HR [facility] Rx#: [id number] Oral 350 / 350 0 / 0 Output: Urine 950 / 950 250 / 250 Other: Meal Dinner Percent of Meal Consumed 100% Stool Size Large Stool Consistency loose soft # Voids 1 # Bowel Movements 1 Weight 87.543 kg Patient Weight 12/22/17 23:59 Weight 87.543 kg
--- NOTE | 2017-12-22 15:27 | Orthopedic Operative Note ---
Date of procedure: 12/22/17 Pre-op diagnosis: Nonunion with hardware failure right femur, open superficial infected wound Post-op diagnosis: same Procedure: Procedure: Wide excision of open wound, removal of hardware right femur, revision open reduction internal fixation right femur. Anesthesia spinal with sedation Estimated blood loss 1000 mL Patient was provided by cardiology and felt to be stable for surgery. Hardware: 12 hole Synthes large broad fragment locking plate with 2 4.0 screws and 9 5.0 locking screws. 3 super cables 1 tibial strut one JAYMIE drain Dictation of procedure: Patient brought to the operating room placed on the operative table after general anesthesia was administered the right lower extremity is prepped and draped in sterile surgical fashion. Patient received IV antibiotics prior skin incision. Patient had an open wound which has been treated in the wound care clinic. This was initially a small opening this was openly debrided less than a week ago this was first irrigated with a antimicrobial solution and then a wide excision was performed including the base of the area. This did not penetrate the fascia. The area was then irrigated with an antimicrobial solution. Incision was then extended proximally and distally through the old incision. Incision made through skin and subcutaneous tissue hemostasis was obtained with Bovie cautery. Using careful sharp dissection the fascia was identified and incised exposing the plate and the nonunion site. Cultures were obtained at this time. The area then set for 2 minutes with a antimicrobial solution. Was then irrigated out pulse irrigation. The plate and screws were removed and the plate was broken almost completely. It was bent as well. 3 super cable were removed as well. The fracture site was cleaned of debris. Prior to this it is no sign of infection at the fracture site. Fracture site was approximately 6 cm proximal to the area the open wound. The fracture was reduced under fluoroscopic assistance and a 12 hole broad Synthes locking plate was approximated to the lateral surface was fixed on either side of the fracture in compression and fixation was completed with 5.0 locking screws. Position of the hardware as well as fracture reduction was found to be acceptable fluoroscopic assistance in the AP and lateral planes. Area was irrigated with Bactisure 1 L followed by 2 L of pulse irrigation. The fracture was packed with 10 mL of DBX bone stimulator protein. A tibial strut was approximated superior surface and fixed with 3 super cables. The fascia was closed with a running #2 FiberWire suture with a JAYMIE drain. The leg was closed by the PA. Subcutaneous tissues closed deep #1 PDS suture superficially with 0 PDS suture skin was closed with skin macho. Patient placed on dressing postoperative brace extubated transferred to recovery room stable condition. Anesthesia: spinal Surgeon: Elbert Winston Was there an pharmacist assistant present: Yes Assessment Coordinator: Geetha Nice Estimated blood loss (cc): 1,000 Condition: stable Disposition: PACU
--- NOTE | 2017-12-22 16:26 | Internal Med Progress Note ---
Date of Encounter: 12/22/17 Time of Encounter: 18:00 - Assessment and plan (1) Femur fracture, right Current Visit: Yes Status: Acute Assessment and plan: Status post excision of open wound with removal of right femur hardware and revision open reduction internal fixation of right femur. Continue supportive care. Monitor vital signs closely. Pain control. Physical therapy consult and cleared by orthopedics. Moderate risk for complications. On IV antibiotics per orthopedics recommendations due to chronic open wound. Qualifiers: Encounter type: initial encounter Femur location: distal Fracture type: closed Fracture morphology: unspecified fracture morphology Qualified Code(s ): S72.401A - Unspecified fracture of lower end of right femur, initial encounter for closed fracture (2) Chest pain Current Visit: Yes Status: Acute Assessment and plan: Patient describes chest pain last week. Cardiology consultation. Echocardiogram ordered. Will keep nothing by mouth for possible stress test tomorrow. Qualifiers: Chest pain type: precordial pain Qualified Code(s): R07.2 - Precordial pain (3) DVT prophylaxis Current Visit: Yes Status: Acute Assessment and plan: With subcutaneous heparin - Subjective Interval history: Patient is doing well postsurgery. Denies any chest pain at this time. She reportedly had chest heaviness last week and has been having episodes of chest heaviness intermittently. Earlier today, patient was returned from the OR after she developed ventricular trigeminy. Cardiology was consulted and per their evaluation they recommended the patient undergo surgery feeds urgent and to also be evaluated with cardiac stress test. Patient underwent surgery under spinal anesthesia given her severe pulmonary hypertension. Patient is doing well postprocedure. - Constitutional Vitals: Temp Pulse Resp BP Pulse Ox 97.5 F L 82 14 95/53 98 12/22/17 16:14 12/22/17 16:25 12/22/17 16:25 12/22/17 16:14 12/22/17 16:25 General appearance: Present: cooperative, mild distress, A&O X 3, obese, answers questions appropriately - Neck Neck exam general surgery: Present: supple, trachea midline. Absent: lymphadenopathy - Respiratory Respiratory exam: Present: CTAB. Absent: accessory muscle use, rales, rhonchi, wheezes - Cardiovascular Cardiovascular exam: Present: RRR, +S1, +S2. Absent: diastolic murmur, gallop, rubs, systolic murmur - GI/Abdominal GI/Abdominal exam: Present: normal bowel sounds, soft, no peritoneal signs. Absent: distended, tenderness - Extremities Exam Extremities exam: Present: warm, radial pulses palpable and symmetrical. Absent : calf tenderness, cyanotic, pedal edema Additional comments: Tenderness at right thigh surgical site. JAYMIE drain in place. Internal Medicine: Result - Labs CBC & Chem 7: 12/22/17 16:28 12/20/17 01:44 Labs: Short CBC 12/22/17 Range/Units 00:32 Hgb 12.8 (11.5-15.4) g/dL Hct 40.0 (35.3-44.9) % - ABG Interpretation ABG results: PT/INR, D-dimer PT 10.8 Seconds (9.4-12.1) 12/19/17 14:13 - Impressions Impressions Fluoroscopy 12/22/17 13:45 IMPRESSION: Intraprocedural fluoroscopic spot images as above. See separate procedure report for more information. D/ / Bartolome Elliott MD / Bartolome Elliott MD Interpreting Provider: Bartolome Elliott MD - VTE Documentation of Mechanical Device: Venous foot pump, device Consult Discharge Plan - Plan Referrals: Ashlie Shea, [employer]ERSON [Primary Care Provider] -
--- NOTE | 2017-12-22 16:36 | Anesthesia Evaluation Post Op ---
Date of Encounter: 12/22/17 Time of Encounter: 16:36 - Vital Signs Vital Signs: Vital Signs/O2 Sat/Glucose, Most Recent Temp Pulse Resp BP Pulse Ox 97.5 F L 82 14 90/59 98 12/22/17 16:14 12/22/17 16:29 12/22/17 16:29 12/22/17 16:29 12/22/17 16:29 - Lungs Lungs: Clear Ascult./Percussion - Airway Airway: Non-obstructed - Cardiovascular Regular Rate - Mental Status Mental Status: Alert & Oriented, Answers Appropriately - Pain Pain Scale: 0 Pain Scale used: Numeric (1 - 10) - Nausea Vomiting Nausea Vomiting: Not Present - Hydration Hydration: NPO - Discharge PostOp Status: Transfer Patient to floor
[2017-12-22 16:39] LABS: Hematocrit 39.4 % (35.3-44.9); Hemoglobin 12.3 g/dL (11.5-15.4)
[2017-12-22] MEDS ORDERED: Naloxone 0.4 MG/ML INJ IVP PRN (17:36)
[2017-12-22] MEDS ORDERED: *HR* Labetalol 100 MG/20 ML MDV IVP PRN (17:36)
[2017-12-22] MEDS ORDERED: 0.9 % Sodium Chloride 250 ML IVC ONE (18:16)
[2017-12-22 20:06] LABS: Hematocrit 38.5 % (35.3-44.9); Hemoglobin 11.6 g/dL (11.5-15.4)
[2017-12-22] MEDS: rOPINIRole 1 MG TABLET PO SCH (21:31)
[2017-12-23 01:02] LABS: Basophils % 0.3 %; Hematocrit 32.4 % (35.3-44.9); Hemoglobin 10.2 g/dL (11.5-15.4); Immature Granulocytes % 0.5 % (0-4); Lymphocytes # 0.6 K/mcL (0.6-4.6); Lymphocytes % 6.1 %; Mean Corpuscular HGB Conc 31.5 g/dL (31.6-35.5); Mean Corpuscular Hemoglobin 27.4 pg (28.0-33.3); Mean Corpuscular Volume 87.1 fL (83.0-100.0); Mean Platelet Volume 9.8 fL (9.4-12.4); Monocytes # 0.5 K/mcL (0.0-1.3); Neutrophils # 9.2 K/mcL (1.6-8.9); Platelet Count 259 K/mcL (140-400); Red Blood Count 3.72 M/mcL (3.82-4.97); Red Cell Distribution Width 15.3 % (11.5-14.5); Segmented Neutrophils % 88.1 %
[2017-12-23 01:26] LABS: Calcium 8.7 mg/dL (8.6-10.3); Magnesium 1.8 mg/dL (1.6-2.6); Potassium 4.6 mEq/L (3.5-5.1)
[2017-12-23] MEDS ORDERED: Regadenoson 0.4 MG/5 ML SYRINGE IVP ONE (05:43)
--- NOTE | 2017-12-23 06:29 | Orthopedics Progress Note ---
Date of Encounter: 12/23/17 Time of Encounter: 06:29 Subjective Principal diagnosis: Femur fracture Interval history: Patient was seen this morning doing well without complaints. Afebrile vital signs stable. Operative extremity: Neurovascularly intact Dressing clean dry and intact Calves nontender Assessment and plan: Continue with postoperative care Hematocrit 32 cardiac workup pending Objective Vital signs: Vital Signs Temp Pulse Resp BP Pulse Ox 12/23/17 05:10 98.4 F 84 18 115/73 96 12/23/17 00:45 98.5 F 86 18 95/63 93 12/22/17 19:31 98.1 F 90 18 87/77 95 12/22/17 17:45 97.1 F L 90 18 90/62 96 12/22/17 17:15 92/63 12/22/17 17:00 97.5 F L 80 16 82/62 97 12/22/17 16:44 97.4 F L 79 14 94/58 93 12/22/17 16:29 82 14 90/59 98 12/22/17 16:14 97.5 F L 80 14 95/53 95 12/22/17 16:04 83 16 86/54 100 12/22/17 15:54 80 16 90/49 100 12/22/17 15:44 97.0 F L 89 18 80/51 100 12/22/17 13:15 53 18 114/80 96 12/22/17 11:20 98.8 F 84 18 129/83 93 12/22/17 10:46 98.5 F 73 18 125/73 94 12/22/17 10:32 97.7 F 90 16 147/75 94 12/22/17 09:45 97.5 F L 87 17 143/87 95 Intake and Output 12/22/17 12/22/17 12/23/17 15:59 23:59 07:59 Intake Total 480 / 480 0 / 0 Output Total 1000 / 1000 180 / 180 330 / 330 Balance -1000 / -1000 300 / 300 -330 / -330 Intake: Oral 480 / 480 0 / 0 Output: Urine 0 / 0 200 / 200 Estimated Blood Loss 1000 / 1000 Wound Drainage 180 / 180 130 / 130 Right Knee 130 / 130 130 / 130 Other: Weight 87.543 kg Patient Weight 12/23/17 23:59 Weight 87.543 kg - Labs CBC & BMP: 12/23/17 00:52 02/27/18 00:52 Labs: Abnormal lab results RBC 3.72 M/mcL (3.82-4.97) L 12/23/17 00:52 Hgb 10.2 g/dL (11.5-15.4) L 12/23/17 00:52 Hct 32.4 % (35.3-44.9) L 12/23/17 00:52 MCH 27.4 pg (28.0-33.3) L 12/23/17 00:52 MCHC 31.5 g/dL (31.6-35.5) L 12/23/17 00:52 RDW 15.3 % (11.5-14.5) H 12/23/17 00:52 Neutrophils # 9.2 K/mcL (1.6-8.9) H 12/23/17 00:52 Est GFR ( Amer) 54 (> 60) L 12/23/17 00:52 Est GFR (Non-Af Amer) 45 (> 60) L 12/23/17 00:52 Glucose 148 mg/dL (70-105) H 12/23/17 00:52 Vancomycin Trough 9.8 mcg/mL (10-20) L 12/22/17 16:28 - VTE Documentation of Mechanical Device: Venous foot pump, device Consult Discharge Plan - Plan Referrals: Ashlie Shea, [employer] [Primary Care Provider] -
[2017-12-23] MEDS: *HR* Heparin 5,000 UNIT/ML VIAL SQ SCH ×2 (06:49→16:29)
[2017-12-23] MEDS: Patient Taking Own Medication 1 EACH PO SCH (08:22)
[2017-12-23] MEDS: Piperacillin/Tazobactam 3.375 GM in 0.9 % Sodium Chloride Mini Bag 100 ML IVPB SCH (08:31)
[2017-12-23] MEDS: Zinc Sulfate 220 MG CAPSULE PO SCH (08:32)
[2017-12-23] MEDS: Famotidine 20 MG TABLET PO SCH ×2 (08:32→20:57)
[2017-12-23] MEDS: Magnesium Oxide 400 MG TABLET PO SCH (08:33)
--- NOTE | 2017-12-23 09:21 | Cardiology Progress Note ---
Date of Encounter: 12/23/17 Time of Encounter: 09:17 Assessment and Plan (1) Chest pain Current Visit: Yes Status: Acute Recent episode a week ago, atypical with PVCs, ischemic work up if surgery was not urgent was recommended. Surgery deemed urgent and she is now POD #1. Denies recurrent chest pain. No complication from surgery. Troponin negative. I discussed following in out pt setting to consider stress test. Patient family adamant that she is evaluated while she is here due to concern about recent chest pain. Discussed with Dr. Huerta. We will let patient rest today after having surgery yesterday. Plan for stress test in am. Patient agrees with plan. ASA 81 mg daily after surgery Qualifiers: Chest pain type: precordial pain Qualified Code(s): R07.2 - Precordial pain (2) PVC (premature ventricular contraction) Current Visit: Yes Status: Acute Noted to have frequent PVC prior to surgery. Now resolved. Telemetry shows NSR with occasional PVC. Discussion w patient/family: The assessment and plan as outlined above was discussed with the patient and/or family members who expressed understanding and agreement. All questions were answered. Thank you for involving us in the care of your patient. Please call with any questions. Subjective Principal diagnosis: Femur fracture Interval history: Patient denies chest pain or SOB. Reports having chest pain one week ago with activity. Reports it was sharp. States that she had chest pain on occasion before. Patient's sister says patient is not telling the whole story and feels she is having chest pain more frequently. Objective Vital Signs, Last 4 Hours Temp Pulse Resp BP Pulse Ox 12/23/17 06:38 97.4 F L 83 15 93/63 92 General: Conversant, No Apparent Distress HEENT: Atraumatic, Normocephaly, Mucus Membranes Moist Neck: No JVD, Normal carotid pulses Cardiac: Reg Rate and Rhythm, Normal S1 and S2, No Murmur Lungs: Normal Breath Sounds, No Wheeze, Rales, Rhonchi Neuro: Alert and responsive, No focal deficits noted Abdomen: Soft, Non-Tender Skin: No rashes noted on visualized skin Musculoskeletal: No Chest Wall Tenderness Extremities: No Clubbing, No Cyanosis, No Edema, Normal Pulses, Other (Brace on RLE intact. Jone bandage intact. JAYMIE drain intact and draining. ) Results 12/23/17 00:52 12/23/17 00:52 Lab Results 12/22/17 12/22/17 12/23/17 16:28 19:33 00:52 WBC 10.4 D Hgb 12.3 11.6 10.2 L Hct 39.4 38.5 32.4 L Plt Count 259 Sodium Potassium Chloride Carbon Dioxide BUN Creatinine Glucose Calcium Magnesium Troponin I 12/23/17 12/23/17 00:52 05:58 WBC Hgb Hct Plt Count Sodium 138 Potassium 4.6 Chloride 106 Carbon Dioxide 27 BUN 22 Creatinine 1.20 Glucose 148 H Calcium 8.7 Magnesium 1.8 Troponin I < 0.03 - Imaging and Cardiology Echo: report reviewed - EKG Interpretation EKG results cardiology: personally reviewed - VTE Documentation of Mechanical Device: Venous foot pump, device Consult Discharge Plan - Plan Referrals: Ashlie Shea, [employer] DIRECTOR [Primary Care Provider] -
[2017-12-23] MEDS ORDERED: Piperacillin/Tazobactam 3.375 GM in 0.9 % Sodium Chloride Mini Bag 100 ML IVPB SCH (15:00)
--- NOTE | 2017-12-23 15:09 | Internal Med Progress Note ---
Date of Encounter: 12/23/17 Time of Encounter: 10:30 - Assessment and plan (1) Comminuted fracture of shaft of femur Current Visit: No Status: Acute Assessment and plan: s/p excision of open wound with removal of right femur hardware and revision open reduction internal fixation of right femur. POD-1. Duragesic patch, PRN Roxanol, oxycodone for pain. Continue IV ATB per Ortho. PT/OT commending [facility]. Qualifiers: Encounter type: initial encounter Fracture type: closed Fracture alignment: displaced Laterality: right Qualified Code(s): S72.351A - Displaced comminuted fracture of shaft of right femur, initial encounter for closed fracture (2) Postoperative anemia Current Visit: Yes Status: Acute Assessment and plan: Hgb 14 on admission and dropped to 10.3. No active bleeding. Possible delusional component with IV fluids. Continue to monitor H&H, transfuse for Hgb less than 8. Cont home iron supplements (3) Chest pain Current Visit: Yes Status: Acute Assessment and plan: Patient describes chest pain last week and with acute chest pressure postop. Discussed with Cardiology (Dr. Huerta) and no need for stress test as patient already had surgery. Echo pending. Can follow up with cardiology outpatient. Qualifiers: Chest pain type: precordial pain Qualified Code(s): R07.2 - Precordial pain (4) Nonhealing surgical wound Current Visit: No Status: Acute Assessment and plan: s/p I&D per Dr. Rey. Unable to assess area as she has on bulky dressing with immobilizer/brace to right lower leg. Patient says she has C who will assist with dressing changes. Cont local wound care per Ortho. Cont zinc to assist with wound healing. Qualifiers: Encounter type: subsequent encounter Qualified Code(s): T81.89XD - Other complications of procedures, not elsewhere classified, subsequent encounter (5) GERD (gastroesophageal reflux disease) Current Visit: No Status: Chronic Assessment and plan: per hx. Cont PPI Qualifiers: Esophagitis presence: without esophagitis Qualified Code(s): K21.9 - Gastro -esophageal reflux disease without esophagitis (6) DVT prophylaxis Current Visit: Yes Status: Acute Assessment and plan: heparin - Subjective Interval history: Seen and examined at bedside. Patient is new to me. Information obtained from chart review and patient report. Patient says she feels well, has some right leg pain but overall improved. She would like to go home today if possible. She has been up with PT/OT. Voiding on her own. No further chest pain, no shortness of breath. Discussed case with Dr. Winston and will keep overnight to monitor H&H. Dr. Winston also expressed concern for patient returning home as she lives with her daughter who cares for 8 children. I discussed at length with patient who is insisting on going home. Patient says she has her own room with bathroom, refrigerator and microwave. Asked patient to return to daughter to solidify discharge plans. - Constitutional Vitals: Temp Pulse Resp BP Pulse Ox 97.4 F L 83 15 93/63 92 12/23/17 06:38 12/23/17 06:38 12/23/17 06:38 12/23/17 06:38 12/23/17 06:38 General appearance: Present: cooperative, A&O X 3, obese, answers questions appropriately - Head Head exam: Present: atraumatic, normocephalic - Eye Eye exam: Present: PERRL, conjuntiva pink, sclera anicteric Pupils: Present: PERRL - Neck Neck exam general surgery: Present: supple, trachea midline. Absent: lymphadenopathy - Respiratory Respiratory exam: Present: CTAB. Absent: accessory muscle use, rales, rhonchi, wheezes - Cardiovascular Cardiovascular exam: Present: RRR, +S1, +S2. Absent: diastolic murmur, gallop, rubs, systolic murmur - GI/Abdominal GI/Abdominal exam: Present: normal bowel sounds, soft, no peritoneal signs. Absent: distended, tenderness - Extremities Exam Extremities exam: Present: pedal edema, warm, radial pulses palpable and symmetrical. Absent: calf tenderness, cyanotic Additional comments: A lower extremity and bulky dressing and immobilizer/brace - Neurological Exam Neurological exam: Present: CN II-XII intact, oriented X3, no focal deficits. Absent: pronater drift, facial droop, speech deficit - Skin Skin exam: Present: dry, intact Internal Medicine: Result - Labs CBC & Chem 7: 12/23/17 00:52 12/23/17 00:52 Labs: Short CBC 12/22/17 12/22/17 12/23/17 Range/Units 16:28 19:33 00:52 WBC 10.4 D (4.3-11.1) K/mcL Hgb 12.3 11.6 10.2 L (11.5-15.4) g/dL Hct 39.4 38.5 32.4 L (35.3-44.9) % Plt Count 259 (140-400) K/mcL Neutrophils # 9.2 H (1.6-8.9) K/mcL BMP 12/23/17 00:52 Sodium 138 Potassium 4.6 Chloride 106 Carbon Dioxide 27 BUN 22 Creatinine 1.20 Glucose 148 H Calcium 8.7 Cardiac Enzymes 12/23/17 12/23/17 Range/Units 05:58 12:07 Troponin I < 0.03 < 0.03 (< 0.04) ng/mL - ABG Interpretation ABG results: PT/INR, D-dimer PT 10.8 Seconds (9.4-12.1) 12/19/17 14:13 - Impressions Impressions Echocardiogram 12/22/17 09:33 Impressions: LVEF 60-65%. Normal LV chamber size, wall thickness and function. Mild left ventricular diastolic dysfunction. Normal right ventricular structure and function. No significant valvular dysfunction. Borderline mild pulmonary hypertension. RVSP 35 mmHg. Left Ventricular Wall Motion: Rest Echo Findings All wall segments showed normal motion. Findings: Study Quality * Technically sub-optimal due to poor echocardiographic windows. ECG Findings * Normal sinus rhythm. Left Ventricle * LVEF 60-65%. * Normal LV chamber size, wall thickness and function. * Mild left ventricular diastolic dysfunction. Right Ventricle * Normal right ventricular structure and function. Left Atrium * Normal left atrial size. Right Atrium * Normal right atrial size. Interatrial Septum * Interatrial septum not well evaluated. Aortic Valve * Trileaflet aortic valve with normal function. * No aortic regurgitation. * No aortic stenosis. Mitral Valve * Normal mitral valve structure and function. * No mitral regurgitation. * No mitral stenosis. Tricuspid Valve * Normal tricuspid valve structure and function. * Trace tricuspid regurgitation. * Borderline mild pulmonary hypertension. Pulmonic Valve * Normal pulmonic valve structure and function. * No pulmonic regurgitation. Aorta * Normally sized aortic root. Pericardium * The pericardium appears normal. IVC * Normal IVC dimensions and inspiratory collapse. Pulmonary Artery * Normal visualized portions of the main pulmonary artery. Femur X-Ray 12/22/17 12:42 IMPRESSION: Status post replacement of the right lateral femoral plate and screws. No acute process. D/ / Megan Juarez MD / Megan Juarez MD Interpreting Provider: Megan Juarez MD Fluoroscopy 12/22/17 13:45 IMPRESSION: Intraprocedural fluoroscopic spot images as above. See separate procedure report for more information. D/ / Bartolome Elliott MD / Bartolome Elliott MD Interpreting Provider: Bartolome Elliott MD - VTE Documentation of Mechanical Device: Venous foot pump, device Consult Discharge Plan - Plan Referrals: Ashlie Shea, [employer] [Primary Care Provider] -
[2017-12-23] MEDS: rOPINIRole 1 MG TABLET PO SCH (20:57)
[2017-12-24] MEDS: Piperacillin/Tazobactam 3.375 GM in 0.9 % Sodium Chloride Mini Bag 100 ML IVPB SCH ×4 (00:42→23:26)
[2017-12-24] MEDS ORDERED: Acetaminophen 325 MG TABLET PO PRN (01:02)
[2017-12-24 04:57] LABS: Hematocrit 26.6 % (35.3-44.9); Mean Corpuscular Hemoglobin 27.6 pg (28.0-33.3); Mean Corpuscular Volume 86.4 fL (83.0-100.0); Mean Platelet Volume 9.9 fL (9.4-12.4); Platelet Count 208 K/mcL (140-400); Red Blood Count 3.08 M/mcL (3.82-4.97); Red Cell Distribution Width 15.8 % (11.5-14.5)
[2017-12-24 05:07] LABS: Hemoglobin 8.5 g/dL (11.5-15.4)
[2017-12-24] MEDS: *HR* Heparin 5,000 UNIT/ML VIAL SQ SCH ×2 (05:17→16:42)
--- NOTE | 2017-12-24 06:52 | Orthopedics Progress Note ---
Date of Encounter: 12/24/17 Time of Encounter: 06:52 Subjective Principal diagnosis: Femur fracture Interval history: Patient was seen this morning doing well without complaints. Afebrile vital signs stable. Operative extremity: Neurovascularly intact Dressing clean dry and intact Calves nontender Assessment and plan: Continue with postoperative care Hematocrit 26 cardiac workup pending cultures negative to date. Objective Vital signs: Vital Signs Temp Pulse Resp BP Pulse Ox 12/24/17 04:14 99.1 F 92 20 91/54 94 12/24/17 00:46 99.2 F 104 16 108/60 96 12/23/17 23:40 99.9 F H 103 20 99/64 98 12/23/17 20:52 99.3 F 12/23/17 20:27 99.9 F H 107 20 113/69 94 12/23/17 16:01 98.9 F 74 17 105/60 97 Intake and Output 12/23/17 12/23/17 12/24/17 15:59 23:59 07:59 Intake Total 1150 / 1150 425 / 425 Output Total 760 / 760 645 / 645 20 / 20 Balance -760 / -760 505 / 505 405 / 405 Intake: IV Fluids 350 / 350 100 / 100 Zosyn 3.375 GM In 0.9 % Sodium 100 / 100 100 / 100 Chloride (Mini-Bag +) 100 ML @ 25 mls/hr IVPB Q8H NEIL Rx#: [id number] Vancocin 1,500 MG In 0.9 % 250 / 250 Sodium Chloride 250 ML @ 166.67 mls/hr IVPB Q24H NEIL Rx#: [id number] Oral 800 / 800 325 / 325 Output: Urine 700 / 700 590 / 590 0 / 0 Wound Drainage 60 / 60 55 / 55 20 / 20 Right Knee 60 / 60 55 / 55 20 / 20 - Labs CBC & BMP: 12/24/17 04:44 12/23/17 00:52 Labs: Abnormal lab results RBC 3.08 M/mcL (3.82-4.97) L 12/24/17 04:44 Hgb 8.5 g/dL (11.5-15.4) L D 12/24/17 04:44 Hct 26.6 % (35.3-44.9) L 12/24/17 04:44 MCH 27.6 pg (28.0-33.3) L 12/24/17 04:44 RDW 15.8 % (11.5-14.5) H 12/24/17 04:44 Neutrophils # 9.2 K/mcL (1.6-8.9) H 12/23/17 00:52 Est GFR ( Amer) 54 (> 60) L 12/23/17 00:52 Est GFR (Non-Af Amer) 45 (> 60) L 12/23/17 00:52 Glucose 148 mg/dL (70-105) H 12/23/17 00:52 Vancomycin Trough 4.8 mcg/mL (10-20) L 12/23/17 13:03 - VTE Documentation of Mechanical Device: Venous foot pump, device Consult Discharge Plan - Plan Referrals: Ashlie Shea, B[employer] OUT SCARFING OPERATOR [Primary Care Provider] -
[2017-12-24] MEDS ORDERED: Furosemide 20 MG/2 ML VIAL IVP ONE (07:36)
--- NOTE | 2017-12-24 08:29 | Physician Discharge Referral ---
ExtendedCare Referral Info Transfer To: [facility] Provider in Charge: Provider in Charge after Transfer: PCP Institutional Level of Care: Skilled - Diagnosis (1) Femur fracture, right Priority: Primary Status: Acute (2) Status post open reduction with internal fixation of fracture Priority: Primary Status: Acute Expected Duration of Placement: < 30 days Prognosis: Good Aware of Diagnosis: Patient Aware of Prognosis: Patient - Transfer Medications Prescriptions: OxyCODONE Immed Rel [Roxicodone 5 MG] 5 mg PO Q6HR PRN 7 Days #28 tablet PRN Reason: Severe Pain Sulfamethoxazole/Trimeth DS [Bactrim DS] 1 each PO BID 10 Days #20 tablet Home Medications: Amitriptyline [Elavil] 50 mg PO HS 08/04/17 [History] Buspirone HCl [Buspar] 5 mg PO TID 08/04/17 [History] Docusate [Colace] 100 mg PO DAILY 08/04/17 [History] Ferrous Sulfate [Iron] 325 mg PO DAILY 08/04/17 [History] Magnesium Oxide [Magnesium] 400 mg PO DAILY 08/04/17 [History] Omeprazole [PriLOSEC] 20 mg PO DAILY 08/04/17 [History] Potassium 99 mg PO DAILY 08/04/17 [History] Ranitidine HCl [Acid Automated Teller Manager] 150 mg PO BID 08/04/17 [History] Zinc Sulfate 220 mg PO DAILY 08/04/17 [History] rOPINIRole [Requip] 1 mg PO HS 08/04/17 [History] Sertraline [Zoloft] 50 mg PO DAILY 12/19/17 [History] OxyCODONE Immed Rel [Roxicodone 5 MG] 5 mg PO Q6HR PRN 7 Days #28 tablet [Rx] Sulfamethoxazole/Trimeth DS [Bactrim DS] 1 each PO BID 10 Days #20 tablet [Rx] Allergies/Adverse Reactions: 3 Allergy/AdvReac Type Severity Reaction Status Date / Time No Known Allergies Allergy Verified 08/04/17 19:33 - Respiratory Orders None Smoking Cessation: Smoking cessation has been advised. For more information, call the [place] Tobacco Quit Line at 5-547-MBEB-NOW. - Ancillary Orders May use pressure relief devices daily prn, May go on JACIEL w/family/respon republican w /meds at nurse discretion PRN, May consult with Dentist, Dice Dealer, Store Coordinator PRN - Mobility Orders Chair, Ambulate, Other (NWB to RLE) - Rehabiliation Orders Rehab Potential: Good Rehab Orders: ROM Exercises (upper extremity only), Evaluation for Physical Therapy, Evaluation for Occupational Therapy Other: Orthopedic Orders: Right Leg Opsite dressing, leave intact until first post-operative visit. If dressing becomes >50% saturated, contact office, remove dressing and place appropriate dressing in its place. Do not allow for dressing to get wet. [place]/Zipline dressing in place, plan to remove at POD#14-16. Apply ABD pads and KATELYNN Wrap to right leg, to protect incision from brace wear. Cleanse leg around bandages daily. PT: NWB to RLE. No knee ROM exercises. Apply ICE/cold therapy wrap 3-6x/day for 20 minutes at a time. Encourage incentive spirometer 10x/hour. Elevate affected extremity above heart as tolerated. Brace: Knee Tscope brace at all times, with hinges at knee position. Locked in extension, until first post-operative appointment. OK to remove brace to bath and cleanse lower extremities. - Treatments Skin tear care topically daily PRN per policy List/Other: Orthopedic Orders: Right Leg Opsite dressing, leave intact until first post-operative visit. If dressing becomes >50% saturated, contact office, remove dressing and place appropriate dressing in its place. Do not allow for dressing to get wet. [place]/Zipline dressing in place, plan to remove at POD#14-16. Apply ABD pads and KATELYNN Wrap to right leg, to protect incision from brace wear. Cleanse leg around bandages daily. Starting Bactrim DS BID #20 for 10 days due to history of wound dehiscence. Monitor dressing daily for any drainage, bleeding, or erythema. CERTIFICATION: I certify that the transfer of the above named patient to an Extended Care Facility is necessary for the continuing treatment of the diagnosis listed. The above information is true and accurate reflection of patient's current condition. Confidential - Redisclosure prohibited without a patient's written consent.
[2017-12-24] MEDS: Zinc Sulfate 220 MG CAPSULE PO SCH (09:10)
[2017-12-24] MEDS: Famotidine 20 MG TABLET PO SCH ×2 (09:10→19:51)
[2017-12-24] MEDS: Magnesium Oxide 400 MG TABLET PO SCH (09:11)
--- NOTE | 2017-12-24 09:55 | Event Note ---
Date of Encounter: 12/24/17 Time of Encounter: 09:52 - Cardiology Event Note Discussed plan of care with Dr. Huerta. he spoke with patient and recommended stress test in out-pt setting once she has recovered from her surgery. No strong indication to complete in-patient. Noted to have post-op anemia. Not a good candidate for further cardiac testing. Out-pt f/u will be scheduled with [facility].
[2017-12-24] MEDS: Patient Taking Own Medication 1 EACH PO SCH (11:28)
--- NOTE | 2017-12-24 17:27 | Event Note ---
Date of Encounter: 12/23/17 Time of Encounter: 13:05 PCR- POD#1 Wide excision of open wound, removal of hardware right femur, revision open reduction internal fixation right femur 12/22/17 Catrachito RIZVI - Patient seen at bedside. Pain control: Adequate Participating in PT. All questions and concerns addressed. Educated on use of incentive spirometer, ambulation, and hydration. Patient educated on post-operative restrictions and care. Addressed: Patient is NWB to operative extremity. Remain in brace with no knee motion. D/C plan: PT/OT have determined patient has no needs. Patient desiring to go home - concern from family per patient that she will not have enough help at home. SW and Hospitalist addressing with patient and family. .
--- NOTE | 2017-12-24 19:19 | Internal Med Progress Note ---
Date of Encounter: 12/24/17 Time of Encounter: 14:00 - Assessment and plan (1) Comminuted fracture of shaft of femur Current Visit: No Status: Acute Assessment and plan: s/p excision of open wound with removal of right femur hardware and revision open reduction internal fixation of right femur. POD-1. Duragesic patch, PRN Roxanol, oxycodone for pain. Continue IV ATB per Ortho. PT/OT commending [facility]. There is concern for patient returning home with daughter however patient is adamantly refusing SNF despite multiple conversations. Plan to discharge home once Hgb stabilized. Qualifiers: Encounter type: initial encounter Fracture type: closed Fracture alignment: displaced Laterality: right Qualified Code(s): S72.351A - Displaced comminuted fracture of shaft of right femur, initial encounter for closed fracture (2) Postoperative anemia Current Visit: Yes Status: Acute Assessment and plan: Hgb 14 on admission and dropped to 8.5. No active bleeding. S/p 2 units PRBC on 12/24/17 per Ortho. Continue to monitor H&H, transfuse for Hgb less than 8. Cont home iron supplements (3) Chest pain Current Visit: Yes Status: Acute Assessment and plan: Patient describes chest pain last week and with acute chest pressure postop. Discussed with Cardiology (Dr. Huerta) and no need for stress test as patient already had surgery. Will need stress test in out-pt setting once recovered from surgery Qualifiers: Chest pain type: precordial pain Qualified Code(s): R07.2 - Precordial pain (4) Nonhealing surgical wound Current Visit: No Status: Acute Assessment and plan: s/p I&D per Dr. Rey. Unable to assess area as she has on bulky dressing with immobilizer/brace to right lower leg. Patient says she has C who will assist with dressing changes. Cont local wound care per Ortho. Cont zinc to assist with wound healing. Qualifiers: Encounter type: subsequent encounter Qualified Code(s): T81.89XD - Other complications of procedures, not elsewhere classified, subsequent encounter (5) GERD (gastroesophageal reflux disease) Current Visit: No Status: Chronic Assessment and plan: per hx. Cont PPI Qualifiers: Esophagitis presence: without esophagitis Qualified Code(s): K21.9 - Gastro -esophageal reflux disease without esophagitis (6) DVT prophylaxis Current Visit: Yes Status: Acute Assessment and plan: SCDs - Subjective Interval history: Seen and examined at bedside. Says she feels well and would like to go home. I again addressed with her the concern for returning home with her daughter who cares for 8 children (reportedly). Patient says she has her own room with all DME needed. She is adamently refusing to go to SNF - Constitutional Vitals: Temp Pulse Resp BP Pulse Ox 98.7 F 89 18 105/67 98 12/24/17 14:20 12/24/17 14:20 12/24/17 14:20 12/24/17 14:20 12/24/17 14:20 General appearance: Present: cooperative, A&O X 3, obese, answers questions appropriately - Head Head exam: Present: atraumatic, normocephalic - Eye Eye exam: Present: PERRL, conjuntiva pink, sclera anicteric Pupils: Present: PERRL - Neck Neck exam general surgery: Present: supple, trachea midline. Absent: lymphadenopathy - Respiratory Respiratory exam: Present: CTAB. Absent: accessory muscle use, rales, rhonchi, wheezes - Cardiovascular Cardiovascular exam: Present: RRR, +S1, +S2. Absent: diastolic murmur, gallop, rubs, systolic murmur - GI/Abdominal GI/Abdominal exam: Present: normal bowel sounds, soft, no peritoneal signs. Absent: distended, tenderness - Extremities Exam Extremities exam: Present: pedal edema, warm, radial pulses palpable and symmetrical. Absent: calf tenderness, cyanotic Additional comments: Right lower extremity with bulky dressing and knee brace - Neurological Exam Neurological exam: Present: CN II-XII intact, oriented X3, no focal deficits. Absent: pronater drift, facial droop, speech deficit - Skin Skin exam: Present: dry, intact Internal Medicine: Result - Labs CBC & Chem 7: 12/24/17 04:44 12/23/17 00:52 Labs: Short CBC 12/24/17 Range/Units 04:44 WBC 8.1 (4.3-11.1) K/mcL Hgb 8.5 L D (11.5-15.4) g/dL Hct 26.6 L (35.3-44.9) % Plt Count 208 (140-400) K/mcL - ABG Interpretation ABG results: PT/INR, D-dimer PT 10.8 Seconds (9.4-12.1) 12/19/17 14:13 - VTE Documentation of Mechanical Device: Venous foot pump, device Consult Discharge Plan - Plan Referrals: Ashlie Shea, TRACY [Primary Care Provider] - Prescriptions: OxyCODONE Immed Rel [Roxicodone 5 MG] 5 mg PO Q6HR PRN 7 Days #28 tablet PRN Reason: Severe Pain Sulfamethoxazole/Trimeth DS [Bactrim DS] 1 each PO BID 10 Days #20 tablet
[2017-12-24] MEDS ORDERED: 0.9 % Sodium Chloride 250 ML ONE (19:47)
[2017-12-24] MEDS: rOPINIRole 1 MG TABLET PO SCH (19:51)
[2017-12-25 04:01] LABS: Hematocrit 31.4 % (35.3-44.9); Mean Corpuscular HGB Conc 32.5 g/dL (31.6-35.5); Mean Corpuscular Hemoglobin 28.2 pg (28.0-33.3); Mean Corpuscular Volume 86.7 fL (83.0-100.0); Mean Platelet Volume 10.4 fL (9.4-12.4); Platelet Count 209 K/mcL (140-400); Red Blood Count 3.62 M/mcL (3.82-4.97); Red Cell Distribution Width 15.3 % (11.5-14.5)
[2017-12-25 04:03] LABS: Hemoglobin 10.2 g/dL (11.5-15.4)
[2017-12-25] MEDS: *HR* Heparin 5,000 UNIT/ML VIAL SQ SCH (05:07)
[2017-12-25] MEDS ORDERED: *HR* FentaNYL PATCH 25 MCG PATCH TD SCH (07:45)
[2017-12-25] MEDS: Magnesium Oxide 400 MG TABLET PO SCH (08:53)
[2017-12-25] MEDS: Famotidine 20 MG TABLET PO SCH (08:54)
[2017-12-25] MEDS: Piperacillin/Tazobactam 3.375 GM in 0.9 % Sodium Chloride Mini Bag 100 ML IVPB SCH (08:54)
[2017-12-25] MEDS: Zinc Sulfate 220 MG CAPSULE PO SCH (08:54)
[2017-12-25] MEDS: Patient Taking Own Medication 1 EACH PO SCH (08:55)
--- NOTE | 2017-12-25 09:48 | Orthopedics Progress Note ---
Date of Encounter: 12/25/17 Time of Encounter: 09:48 Subjective Principal diagnosis: Femur fracture Interval history: Patient was seen this morning doing well without complaints. Afebrile vital signs stable. Operative extremity: Neurovascularly intact Dressing clean dry and intact Calves nontender Assessment and plan: Continue with postoperative care No growth to date in cultures orthopedically stable for discharge on Bactrim DS No. 14 days Objective Vital signs: Vital Signs Temp Pulse Resp BP Pulse Ox 12/25/17 06:52 98.1 F 89 17 115/77 99 12/25/17 03:24 98.5 F 93 16 104/61 93 12/24/17 23:19 98.6 F 100 16 114/76 94 12/24/17 23:18 98.6 F 100 16 114/76 94 12/24/17 20:32 98.4 F 100 16 109/61 93 12/24/17 20:21 98.9 F 100 16 110/62 94 12/24/17 20:17 98.7 F 100 16 110/62 94 12/24/17 14:20 98.7 F 89 18 105/67 98 12/24/17 12:00 98.5 F 84 20 101/56 96 Intake and Output 12/24/17 12/25/17 12/25/17 23:59 07:59 15:59 Intake Total 790 / 790 400 / 400 0 / 0 Output Total 925 / 925 300 / 300 200 / 200 Balance -135 / -135 100 / 100 -200 / -200 Intake: IV Fluids 100 / 100 100 / 100 Zosyn 3.375 GM In 0.9 % Sodium 100 / 100 100 / 100 Chloride (Mini-Bag +) 100 ML @ 25 mls/hr IVPB Q8H [facility] Rx#: [id number] Oral 340 / 340 300 / 300 0 / 0 Blood Product 350 / 350 Rbcs Leuko Poor As-1 Unit 350 / 350 [id number] Output: Urine 925 / 925 300 / 300 200 / 200 Other: Meal Dinner Percent of Meal Consumed 30% - Labs CBC & BMP: 12/25/17 03:48 12/23/17 00:52 Labs: Abnormal lab results RBC 3.62 M/mcL (3.82-4.97) L 12/25/17 03:48 Hgb 10.2 g/dL (11.5-15.4) L D 12/25/17 03:48 Hct 31.4 % (35.3-44.9) L 12/25/17 03:48 RDW 15.3 % (11.5-14.5) H 12/25/17 03:48 Neutrophils # 9.2 K/mcL (1.6-8.9) H 12/23/17 00:52 Est GFR ( Amer) 54 (> 60) L 12/23/17 00:52 Est GFR (Non-Af Amer) 45 (> 60) L 12/23/17 00:52 Glucose 148 mg/dL (70-105) H 12/23/17 00:52 Vancomycin Trough 4.8 mcg/mL (10-20) L 12/23/17 13:03 - VTE Documentation of Mechanical Device: Venous foot pump, device Consult Discharge Plan - Plan Referrals: Ashlie Shea, [employer] [Primary Care Provider] - Prescriptions: OxyCODONE Immed Rel [Roxicodone 5 MG] 5 mg PO Q6HR PRN 7 Days #28 tablet PRN Reason: Severe Pain Sulfamethoxazole/Trimeth DS [Bactrim DS] 1 each PO BID 10 Days #20 tablet
--- NOTE | 2017-12-25 10:11 | Physician Discharge Referral ---
<Pool Sahni - Last Filed: 12/25/17 13:06> Home Health/Hosp Referral Info Transfer to: Home Health (Dr Winston) Provider in Charge Post Discharge: Other - Diagnosis (1) Comminuted fracture of shaft of femur Priority: Primary Status: Acute (2) GERD (gastroesophageal reflux disease) Priority: Secondary Status: Chronic (3) Nonhealing surgical wound Priority: Primary Status: Acute (4) Chest pain Priority: Secondary Status: Acute (5) Postoperative anemia Priority: Primary Status: Acute - Respiratory Orders None Smoking Cessation: Smoking cessation has been advised. For more information, call the [place] Tobacco Quit Line at 1-544-LRMJ-NOW. - Dressing/Wound Care Site: Right Leg Type of Dressing/Treatments w/Frequency: Orthopedic Orders: Right Leg Opsite dressing, leave intact until first post-operative visit. If dressing becomes >50% saturated, contact office, remove dressing and place appropriate dressing in its place. Do not allow for dressing to get wet. Benjamin/Zipline dressing in place, plan to remove at POD#14-16. Apply ABD pads and KATELYNN Wrap to right leg, to protect incision from brace wear. Cleanse leg around bandages daily. PT: NWB to RLE. No knee ROM exercises. Apply ICE/cold therapy wrap 3-6x/day for 20 minutes at a time. Encourage incentive spirometer 10x/hour. Elevate affected extremity above heart as tolerated. Brace: Knee Tscope brace at all times, with hinges at knee position. Locked in extension, until first post-operative appointment. OK to remove brace to bath and cleanse lower extremities. - Diet/Nutrition Diet/Nutrition Orders: Regular - Activity Activity Orders: Ambulate, Chair Activity: List: Non weight bearing on Right leg No ROM exercises - Services Needed Following services are medically necessary services: Home Health Aide, Physical Therapy, Occupational Therapy - Transfer Medications Prescriptions: OxyCODONE Immed Rel [Roxicodone 5 MG] 5 mg PO Q6HR PRN 7 Days #28 tablet PRN Reason: Pain Sulfamethoxazole/Trimeth DS [Bactrim DS] 1 each PO BID 14 Days tablet Home Medications: Amitriptyline [Elavil] 50 mg PO HS 08/04/17 [History] Buspirone HCl [Buspar] 5 mg PO TID 08/04/17 [History] Docusate [Colace] 100 mg PO DAILY 08/04/17 [History] Ferrous Sulfate [Iron] 325 mg PO DAILY 08/04/17 [History] Magnesium Oxide [Magnesium] 400 mg PO DAILY 08/04/17 [History] Omeprazole [PriLOSEC] 20 mg PO DAILY 08/04/17 [History] Potassium 99 mg PO DAILY 08/04/17 [History] Ranitidine HCl [Acid Reefer Truck Driver] 150 mg PO BID 08/04/17 [History] Zinc Sulfate 220 mg PO DAILY 08/04/17 [History] rOPINIRole [Requip] 1 mg PO HS 08/04/17 [History] Sertraline [Zoloft] 50 mg PO DAILY 12/19/17 [History] Acetaminophen [Tylenol] 650 mg PO Q6HR PRN tablet 12/25/17 [Rx] OxyCODONE Immed Rel [Roxicodone 5 MG] 5 mg PO Q6HR PRN 7 Days #28 tablet [Rx] Sulfamethoxazole/Trimeth DS [Bactrim DS] 1 each PO BID 14 Days tablet 12/25/17 [Rx] Allergies/Adverse Reactions: 3 Allergy/AdvReac Type Severity Reaction Status Date / Time No Known Allergies Allergy Verified 08/04/17 19:33 Certification: Further, I certify that my clinical findings support that this patient is homebound (i.e. absences from home require considerable and taxing effort and are for medical reasons or islam services or infrequently or short duration when for other reasons) because: Homebound Reason: Patient requires assistance of a person or device to safely leave home Attestation: My signature below is to certify that this patient is under my care and that I, or nurse practitioner, or a physician's bookkeeping assistant working with me, has a face-to -face encounter with this patient. <Baldemar Camacho - Last Filed: 12/25/17 13:45> - Respiratory Orders Smoking Cessation: Smoking cessation has been advised. For more information, call the [place] Tobacco Quit Line at 0-958-ZKYX-NOW. Certification: Further, I certify that my clinical findings support that this patient is homebound (i.e. absences from home require considerable and taxing effort and are for medical reasons or islam services or infrequently or short duration when for other reasons) because: Attestation: My signature below is to certify that this patient is under my care and that I, or nurse practitioner, or a physician's bookkeeping assistant working with me, has a face-to -face encounter with this patient.
--- NOTE | 2017-12-25 10:19 | Discharge Summary ---
<Pool Sahni - Last Filed: 12/25/17 12:01> - NOTES TO OUTPATIENT PROVIDER Notes to Outpatient Provider: Patient was admitted for right femur fracture repair. Open reduction and internal fixation was done by Dr. Winston. Required 1 unit of PRBC due to low hemoglobin after surgery. Orders not resulted at time of discharge: Pending orders 12/22/17 13:45 XR femur RT [XR] Routine 12/22/17 15:50 Culture,Anaerobic [RM] Routine Culture,Anaerobic [RM] Routine Culture,Tissue (Biopsy) [RM] Routine Culture,Tissue (Biopsy) [RM] Routine 12/24/17 10:00 Occult Blood,Stool [BF] Stat 12/25/17 14:00 Vancomycin,Trough Timed 12/26/17 04:00 Complete Blood Count w/o Diff [HEME] AM 0400 12/27/17 04:00 Complete Blood Count w/o Diff [HEME] AM 0400 12/28/17 04:00 Complete Blood Count w/o Diff [HEME] AM 0400 12/29/17 04:00 Complete Blood Count w/o Diff [HEME] AM 0400 Date of Encounter: 12/25/17 Time of Encounter: 10:16 - Discharge Diagnosis (1) Comminuted fracture of shaft of femur Priority: Primary Status: Acute Qualifiers: Encounter type: initial encounter Fracture type: closed Fracture alignment: displaced Laterality: right Qualified Code(s): S72.351A - Displaced comminuted fracture of shaft of right femur, initial encounter for closed fracture (2) GERD (gastroesophageal reflux disease) Priority: Secondary Status: Chronic Qualifiers: Esophagitis presence: without esophagitis Qualified Code(s): K21.9 - Gastro -esophageal reflux disease without esophagitis (3) Nonhealing surgical wound Priority: Primary Status: Acute Qualifiers: Encounter type: subsequent encounter Qualified Code(s): T81.89XD - Other complications of procedures, not elsewhere classified, subsequent encounter (4) Chest pain Priority: Secondary Status: Acute Qualifiers: Chest pain type: precordial pain Qualified Code(s): R07.2 - Precordial pain (5) Postoperative anemia Priority: Primary Status: Acute Hospital course: Ms. Wells is a 67 year old female that was admitted to the hospital for a right femur fracture that was repaired by Dr. Winston. He did an open reduction with internal fixation of the right femur. Patient was also placed on antibiotics of vancomycin and Zosyn due to a nonhealing surgical wound. After surgery the patient had postop anemia requiring one unit of blood. After transfusion the patient's hemoglobin had an appropriate response and appears to be stable. It has been recommended that the patient go to an extended care facility however the patient has refused discharged to Care facility and wishes to go home. We will set up home health care for this patient and the patient will be discharged home with prescriptions for oxycodone and Bactrim. The patient is stable and appropriate for discharge and will be discharged home today. Discharge discussed with: patient - Time Spent with Patient Total time spent providing and/or coordinating discharge services: Greater than 30 minutes (40) - Discharge Medications Prescriptions: OxyCODONE Immed Rel [Roxicodone 5 MG] 5 mg PO Q6HR PRN 7 Days #28 tablet PRN Reason: Pain Sulfamethoxazole/Trimeth DS [Bactrim DS] 1 each PO BID 14 Days tablet Home Medications: Amitriptyline [Elavil] 50 mg PO HS 08/04/17 [History] Buspirone HCl [Buspar] 5 mg PO TID 08/04/17 [History] Docusate [Colace] 100 mg PO DAILY 08/04/17 [History] Ferrous Sulfate [Iron] 325 mg PO DAILY 08/04/17 [History] Magnesium Oxide [Magnesium] 400 mg PO DAILY 08/04/17 [History] Omeprazole [PriLOSEC] 20 mg PO DAILY 08/04/17 [History] Potassium 99 mg PO DAILY 08/04/17 [History] Ranitidine HCl [Acid Post Production Assistant] 150 mg PO BID 08/04/17 [History] Zinc Sulfate 220 mg PO DAILY 08/04/17 [History] rOPINIRole [Requip] 1 mg PO HS 08/04/17 [History] Sertraline [Zoloft] 50 mg PO DAILY 12/19/17 [History] Acetaminophen [Tylenol] 650 mg PO Q6HR PRN tablet 12/25/17 [Rx] OxyCODONE Immed Rel [Roxicodone 5 MG] 5 mg PO Q6HR PRN 7 Days #28 tablet [Rx] Sulfamethoxazole/Trimeth DS [Bactrim DS] 1 each PO BID 14 Days tablet 12/25/17 [Rx] Allergies/Adverse Reactions: 3 Allergy/AdvReac Type Severity Reaction Status Date / Time No Known Allergies Allergy Verified 08/04/17 19:33 Date of admission: 12/19/17 14:12 Primary care physician: Ashlie Shea CNP Consults: 12/22/17 17:36 Consult to Occupational Therapy [CONS] Routine Comment: Evaluate, develop and implement POC Reason for Consult: postop Consult to Orthopedic Navigator [CONS] [CONS] Routine Consult to Physical Therapy [CONS] Routine Comment: Evaluate, develop and implement POC Reason for Consult: Nonweightbearing right lower extremity Consult to Fiber Worker [CONS] Routine Reason for SW Consult: placement RT Post Op Consult [CONS] Routine 12/22/17 18:19 Consult to Cardiology [CONS] Routine Comment: Consulting Provider: Mercedes Warner Reason for Consult: Chest pain/ vent trigeminy Call Completed: Yes 12/23/17 11:09 Consult to Invasive Line Access Team [CONS] Routine Reason for Consult: Limited access Line Type: EPIV Discharging clinician: Pool Sahni Anticipated date of discharge: 12/25/17 - Constitutional Vitals: Temp Pulse Resp BP Pulse Ox 98.1 F 89 17 115/77 99 12/25/17 06:52 12/25/17 06:52 12/25/17 06:52 12/25/17 06:52 12/25/17 06:52 General appearance: Present: cooperative, A&O X 3, obese, answers questions appropriately - Head Head exam: Present: atraumatic, normocephalic - Neck Neck exam general surgery: Present: full ROM, normal inspection, trachea midline - Cardiovascular Cardiovascular exam: Present: RRR, +S1, +S2. Absent: diastolic murmur, gallop, rubs, systolic murmur - GI/Abdominal Additional comments: Patient has bruising and mild pain over the site of Lovenox injections. - Extremities Exam Additional comments: Patient's right leg is in surgical dressing and knee brace. - Neurological Exam Neurological exam: Present: alert, oriented X3, no focal deficits. Absent: facial droop, speech deficit - Psychiatric Psychiatric exam: Present: normal affect, normal mood - Skin Skin exam: Present: dry, intact, warm Additional comments: Surgical dressing is on place of the right leg with a leg brace - Patient Status Disposition: Home, Self-Care Condition: Good Overall status at discharge: patient is progressing back to baseline - Discharge Instructions Follow Up With: [facility] [Provider Group] Ashlie Shea CNP [Primary Care Provider] - 12/30/17 11:00 am Elbert Winston MD [Partnered Physician] - Forms: ED Satisfaction Letter Additional Instructions: Please follow up with her primary care provider at next available appointment. Please follow up with the orthopedic surgeon as scheduled. Please take all medications as prescribed Please follow up with cardiology as an outpatient per their recommendations/ scheduling Please follow all orthopedic and physical therapy recommendations as provided below Orthopedic Orders: Right Leg Opsite dressing, leave intact until first post-operative visit. If dressing becomes >50% saturated, contact office, remove dressing and place appropriate dressing in its place. Do not allow for dressing to get wet. Benjamin/Zipline dressing in place, plan to remove at POD#14-16. Apply ABD pads and KATELYNN Wrap to right leg, to protect incision from brace wear. Cleanse leg around bandages daily. PT: NWB to RLE. No knee ROM exercises. Apply ICE/cold therapy wrap 3-6x/day for 20 minutes at a time. Encourage incentive spirometer 10x/hour. Elevate affected extremity above heart as tolerated. Brace: Knee Tscope brace at all times, with hinges at knee position. Locked in extension, until first post-operative appointment. OK to remove brace to bath and cleanse lower extremities. - Diet and Activity Activity: as per physical therapy Diet: advance to your usual diet - VTE Documentation of Mechanical Device: Venous foot pump, device <Baldemar Camacho H - Last Filed: 12/25/17 13:48> Orders not resulted at time of discharge: Pending orders 12/22/17 13:45 XR femur RT [XR] Routine 12/22/17 15:50 Culture,Anaerobic [RM] Routine Culture,Anaerobic [RM] Routine Culture,Tissue (Biopsy) [RM] Routine Culture,Tissue (Biopsy) [RM] Routine 12/24/17 10:00 Occult Blood,Stool [BF] Stat 12/25/17 14:00 Vancomycin,Trough Timed 12/26/17 04:00 Complete Blood Count w/o Diff [HEME] AM 0400 12/27/17 04:00 Complete Blood Count w/o Diff [HEME] AM 0400 12/28/17 04:00 Complete Blood Count w/o Diff [HEME] AM 0400 12/29/17 04:00 Complete Blood Count w/o Diff [HEME] AM 0400 Date of Encounter: 12/25/17 Hospital course: Ms. Wells is a 67 year old female - Time Spent with Patient Total time spent providing and/or coordinating discharge services: Date of admission: 12/19/17 14:12 Primary care physician: Ashlie Shea CNP Consults: 12/22/17 17:36 Consult to Occupational Therapy [CONS] Routine Comment: Evaluate, develop and implement POC Reason for Consult: postop Consult to Orthopedic Navigator [CONS] [CONS] Routine Consult to Physical Therapy [CONS] Routine Comment: Evaluate, develop and implement POC Reason for Consult: Nonweightbearing right lower extremity Consult to Fiber Worker [CONS] Routine Reason for SW Consult: placement RT Post Op Consult [CONS] Routine 12/22/17 18:19 Consult to Cardiology [CONS] Routine Comment: Consulting Provider: [facility] Reason for Consult: Chest pain/ vent trigeminy Call Completed: Yes 12/23/17 11:09 Consult to Invasive Line Access Team [CONS] Routine Reason for Consult: Limited access Line Type: EPIV - Constitutional Vitals: Temp Pulse Resp BP Pulse Ox 98.2 F 98 16 119/75 97 12/25/17 13:09 12/25/17 13:09 12/25/17 13:09 12/25/17 13:09 12/25/17 13:09 - Attending Attestation acute blood loss anemia after surgical procedure. stable. I examined this patient and my medical decision-making was reviewed with the Resident Physician. I agree with the documented findings, disposition and treatment plan as described except to the extent set forth below.
[2017-12-25 16:44] VITALS: BP 141/78
--- NOTE | 2017-12-25 16:48 | Event Note ---
Date of Encounter: 12/25/17 Time of Encounter: 13:16 D/C home with HH today NWB to [facility] Patel at all times.
[2017-12-25] MEDS ORDERED: Aminoglycoside Consult 1 EACH MC ONE (17:54)
--- NOTE | 2017-12-26 07:27 | Electrocardiograph Report ---
[place] [id number] Test Date: 2017-12-22 Pat Name: Flaca Wells Department: 101 Room: [facility] Gender: F [employer] Team Member: RAMON : 1950 Requested By: Lawrence Cavazos Order Number: [id number] Reading MD: Ricardo Lou DO Measurements Intervals [place] Rate: 91 P: 69 TN: 141 QRS: 48 QRSD: 105 T: 52 QT: 400 QTc: 449 Interpretive Statements SINUS RHYTHM POSSIBLE INFERIOR MYOCARDIAL INFARCTION, PROBABLY OLD Electronically Signed On 12-26-2017 7:25:54 EST by Ricardo Lou DO
--- NOTE | 2018-01-23 14:03 | Emergency Department Note ---
Disposition Clinical Impression: Femur fracture, right Qualifiers: Encounter type: initial encounter Femur location: distal Fracture type: closed Fracture morphology: unspecified fracture morphology Qualified Code(s): S72.401A - Unspecified fracture of lower end of right femur, initial encounter for closed fracture Disposition: Admitted As Inpatient Condition: Good General Adult HPI - General Chief complaint: ED Extremity Problem,Nontraumatic Stated complaint: wound RLE, unable to walk Time Seen by Provider: 12/19/17 09:15 Source: patient Limitations: no limitations Nursing Notes Reviewed: Yes Vital Signs Reviewed: Yes - History of Present Illness HPI Narrative: The patient presents with right leg pain which is severe and again recently and she is unable to bear weight. She does have a history of a plate for femur fracture repair. The pain is worse with range of motion. Denies any fevers or vomiting or abdominal pain Pain Scale: 0 - Related Data Home Medications Medication Instructions Recorded Confirmed Amitriptyline [Elavil] 50 mg PO HS 08/04/17 12/19/17 Buspirone HCl [Buspar] 5 mg PO TID 08/04/17 12/19/17 Docusate [Colace] 100 mg PO DAILY 08/04/17 12/19/17 Ferrous Sulfate [Iron] 325 mg PO DAILY 08/04/17 12/19/17 Magnesium Oxide [Magnesium] 400 mg PO DAILY 08/04/17 12/19/17 Omeprazole [PriLOSEC] 20 mg PO DAILY 08/04/17 12/19/17 Potassium 99 mg PO DAILY 08/04/17 12/19/17 Ranitidine HCl [Acid Uniform Force Captain] 150 mg PO BID 08/04/17 12/19/17 Zinc Sulfate 220 mg PO DAILY 08/04/17 12/19/17 rOPINIRole [Requip] 1 mg PO HS 08/04/17 12/19/17 Sertraline [Zoloft] 50 mg PO DAILY 12/19/17 12/19/17 Previous Rx's Medication Instructions Recorded Acetaminophen [Tylenol] 650 mg PO Q6HR PRN tablet 12/25/17 OxyCODONE Immed Rel [Roxicodone 5 5 mg PO Q6HR PRN 7 Days #28 tablet 12/25/17 MG] Sulfamethoxazole/Trimeth DS 1 each PO BID 14 Days tablet 12/25/17 [Bactrim DS] Allergies Allergy/AdvReac Type Severity Reaction Status Date / Time No Known Allergies Allergy Verified 08/04/17 19:33 All systems ED: reviewed and negative except as stated. Review of Systems: As Per HPI Past Medical History - Past Medical History Medical history: Reports: arthritis, GERD, osteoporosis Surgical history: Reports: herniorrhaphy, hysterectomy, knee replacement Psychiatric history: Reports: anxiety, depression - Social History Smoking Status: Never smoker Smokeless Tobacco Status: No Alcohol use: Reports: none Drug use: Reports: none Physical Exam CONSTITUTIONAL: Alert and oriented X3, well-nourished, well appearing, in no apparent distress HEAD: Normocephalic; atraumatic. EYES: PERRL, no scleral icterus. NOSE: The nose is normal in appearance without rhinorrhea RESP: Normal chest excursion with respiration; breath sounds clear and equal bilaterally; no wheezes, rhonchi, or rales CARD: Regular rhythm, without murmurs, rub or gallop ABD: Non-distended; non-tender, soft,without rigidity, rebound or guarding SKIN: Normal for age and race; warm and dry; no apparent lesions Extremities: The right leg does have some swelling over the upper leg and tenderness with palpation but no crepitus or necrosis. Peripheral pulses normal. - General Limitations: no limitations General appearance: alert, in no apparent distress Course Vital Signs Temperature 98.4 F 12/19/17 08:42 Pulse Rate 81 12/19/17 08:42 Respiratory Rate 18 12/19/17 08:42 Blood Pressure 145/94 12/19/17 08:42 O2 Sat by Pulse Oximetry 95 12/19/17 08:42 Temperature 99.2 F 12/25/17 16:43 Pulse Rate 100 12/25/17 16:43 Respiratory Rate 16 12/25/17 16:43 Blood Pressure 141/78 12/25/17 16:43 O2 Sat by Pulse Oximetry 95 12/25/17 16:43 Oxygen Delivery Oxygen Delivery Room Air Medical Decision Making - MDM Narrative Medical decision making narrative: I did review the patient's labs and x-ray and does have a fracture of the plate and the patient will be admitted with orthopedic consultation and we did speak with these physicians. - Medical Records Medical records reviewed: Yes I reviewed the patient's medical records. - Lab Data Lab results reviewed: Yes I reviewed the patient's lab results. Result diagrams: 12/25/17 03:48 12/23/17 00:52 - Radiology Data Radiology results reviewed: Yes I reviewed the patient's radiology results.
== END 2017-12-25 17:55 | disposition home or self-care (01) | DRG 498 ==
LOC: EMEROO 08:40 → SUATTDRO 14:12 → 3NENU 14:12
PROVIDERS: ADMIT Family Medicine; ATTEND Internal Medicine

== ENCOUNTER 2018-03-27 17:40 | Inpatient (IN) ==
[2018-03-27] MEDS ORDERED: *HR* OxyCODONE Immed Rel 5 MG TABLET PO PRN (18:53)
[2018-03-27] MEDS ORDERED: *HR* OxyCODONE/APAP 10/325 TABLET PO PRN (18:53)
[2018-03-27] MEDS ORDERED: Ondansetron 4 MG/2 ML VIAL IVP PRN (18:55)
[2018-03-27] MEDS ORDERED: D5% in 0.45% NACL 1,000 ML IVC SCH (19:00)
[2018-03-27 19:30] LABS: Basophils # 0.1 K/mcL (0.0-0.2); Basophils % 1.1 %; Eosinophils # 0.5 K/mcL (0.0-0.6); Eosinophils % 6.2 %; Hematocrit 41.3 % (35.3-44.9); Hemoglobin 13.2 g/dL (11.5-15.4); Immature Granulocytes % 0.4 % (0-4); Lymphocytes # 2.2 K/mcL (0.6-4.6); Lymphocytes % 26.5 %; Mean Corpuscular Hemoglobin 26.9 pg (28.0-33.3); Mean Corpuscular Volume 84.1 fL (83.0-100.0); Mean Platelet Volume 9.2 fL (9.4-12.4); Monocytes # 0.4 K/mcL (0.0-1.3); Monocytes % 4.6 %; Neutrophils # 5.1 K/mcL (1.6-8.9); Platelet Count 279 K/mcL (140-400); Red Blood Count 4.91 M/mcL (3.82-4.97); Red Cell Distribution Width 15.9 % (11.5-14.5); Segmented Neutrophils % 61.2 %
[2018-03-27 19:35] LABS: Prothrombin Time 10.5 Seconds (9.4-12.1)
[2018-03-27 19:53] LABS: BUN/Creatinine Ratio 22 (6-26); Blood Urea Nitrogen 21 mg/dL (8-23); Calcium 9.3 mg/dL (8.6-10.3); Carbon Dioxide 23 mEq/L (23-29); Chloride 107 mEq/L (98-107); Glucose 108 mg/dL (70-105); Osmolality,Calculated 292 (280-300); Potassium 3.8 mEq/L (3.5-5.1); Sodium 139 mEq/L (136-145); eGFR For African Americans > 60 (> 60); eGFR For Non-African Americans 57 (> 60)
[2018-03-27] MEDS ORDERED: rOPINIRole 1 MG TABLET PO SCH (21:45)
--- NOTE | 2018-03-28 07:16 | Anesthesia Evaluation PreOp ---
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: Other (RLS) Other Medical History: GERD, Other (RA, anxiety/depression) Anesthesia History: Past Anesthesia (hysterectomy), Problems (PONV) Alcohol Use: none Drug use: none Medications and Allergies Amitriptyline [Elavil] 50 mg PO HS 08/04/17 [History] Buspirone HCl [Buspar] 5 mg PO TID 08/04/17 [History] Docusate [Colace] 100 mg PO DAILY 08/04/17 [History] Ferrous Sulfate [Iron] 325 mg PO DAILY 08/04/17 [History] Magnesium Oxide [Magnesium] 400 mg PO DAILY 08/04/17 [History] Omeprazole [PriLOSEC] 20 mg PO DAILY 08/04/17 [History] Potassium 99 mg PO DAILY 08/04/17 [History] Ranitidine HCl [Acid Business Services Tech] 150 mg PO BID 08/04/17 [History] Zinc Sulfate 220 mg PO DAILY 08/04/17 [History] rOPINIRole [Requip] 1 mg PO HS 08/04/17 [History] Sertraline [Zoloft] 50 mg PO DAILY 12/19/17 [History] Acetaminophen [Tylenol] 650 mg PO Q6HR PRN tablet 12/25/17 [Rx] OxyCODONE Immed Rel [Roxicodone 5 MG] 5 mg PO Q6HR PRN 7 Days #28 tablet [Rx] 3 Allergy/AdvReac Type Severity Reaction Status Date / Time No Known Allergies Allergy Verified 08/04/17 19:33 - Meds/Allergy Pre-op Review Medications Reviewed: Yes Allergies Reviewed: Yes Beta Blockers on Current Med List: No Anesthesia Results - Labs 03/27/18 19:16 03/27/18 19:16 - Imaging EKG: report reviewed (03/28/2018 NSR 12/19/2017 SINUS RHYTHM NONSPECIFIC T-WAVE ABNORMALITY) Additional studies: 02/25/2018 Stress Impression: Perfusion imaging was negative for ischemia or infarct. Pharmacologic stress ECG is negative for ischemia at level of heart rate achieved. No appreciable change from baseline ECG. Gated EF > 70%. 12/22/2017 Echo Impressions: LVEF 60-65%. Normal LV chamber size, wall thickness and function. Mild left ventricular diastolic dysfunction. Normal right ventricular structure and function. No significant valvular dysfunction. Borderline mild pulmonary hypertension. RVSP 35 mmHg. Echocardiogram Date of Study: 08/05/2017 Impressions: LVEF 60-65%. Normal LV chamber size, wall thickness and function. Mild left ventricular diastolic dysfunction. Mildly dilated right ventricle with normal function. Mild tricuspid regurgitation. Estimated RVSP is 56 mmHg. Severe pulmonary hypertension. Anesthesia Exam Vital Signs/O2 Sat, Most Current Temp Pulse Resp BP Pulse Ox 98.2 F 83 16 141/90 96 03/28/18 05:06 03/28/18 05:06 03/28/18 05:06 03/28/18 05:06 03/28/18 05:06 Height: 5'1''/1.55m Weight: 186 lbs/84.6 kg NPO (# of Hours): 8 Pain Scale: 0 (at rest) Pain Scale Used: Numeric (1 - 10) - HEENT Pupil (Motor): EOMI Mallampati: II Teeth: Edentulous Oral Opening: Greater than 3 - MORTGAGE LOAN COMPUTATION CLERK LOC: Oriented MORTGAGE LOAN COMPUTATION CLERK Motor: Normal RUE, Normal LUE, Normal LLE, Normal Face, Deficit RLE MORTGAGE LOAN COMPUTATION CLERK Sensory: Normal: RUE, LUE, RLE, LLE, Face - Cardiac Rhythm: Regular Murmur: None - Pulmonary Breath Sounds: bilateral Clear Respiratory Effort: Symmetrical Anesthesia Assess/Plan ASA Score: 2 Modified [place] Scale for Level of Consciousness: Cooperative, oriented, and tranquil Anesthetic Plan: General, Regional Monitoring Plan: Standard Monitors Recovery Plan: PACU
[2018-03-28] MEDS ORDERED: Famotidine 20 MG TABLET PO SCH ×2 (07:30→16:30)
--- NOTE | 2018-03-28 08:24 | Orthopedics Progress Note ---
Date of Encounter: 03/28/18 Time of Encounter: 08:24 Subjective Interval history: Patient seen this morning labs reviewed planned surgery reviewed all questions answered Objective Vital signs: Vital Signs Temp Pulse Resp BP Pulse Ox 03/28/18 05:06 98.2 F 83 16 141/90 96 03/28/18 00:18 97.7 F 80 14 110/75 94 03/27/18 19:45 97.8 F 81 16 159/97 95 Intake and Output 03/27/18 03/28/18 03/28/18 23:59 07:59 15:59 Other: # Voids 1 Weight 84.6 kg - Labs CBC & BMP: 03/27/18 19:16 03/27/18 19:16 Labs: Abnormal lab results MCH 26.9 pg (28.0-33.3) L 03/27/18 19:16 RDW 15.9 % (11.5-14.5) H 03/27/18 19:16 MPV 9.2 fL (9.4-12.4) L 03/27/18 19:16 Est GFR (Non-Af Amer) 57 (> 60) L 03/27/18 19:16 Glucose 108 mg/dL (70-105) H 03/27/18 19:16 - VTE Documentation of Mechanical Device: Venous foot pump, device Consult Discharge Plan - Plan Referrals: Ashlie Shea, MOTOR HOTEL MANAGER [Primary Care Provider] -
[2018-03-28] MEDS ORDERED: Ondansetron 4 MG/2 ML VIAL ONE (08:45)
[2018-03-28] MEDS ORDERED: *HR* FentaNYL (PF) 100 MCG/2 ML VIAL ONE ×2 (08:45→12:57)
[2018-03-28] MEDS ORDERED: *HR* Midazolam HCl 2 MG/2 ML VIAL ONE (08:45)
[2018-03-28] MEDS ORDERED: Lidocaine -MPF 2% 2 ML VIAL ONE (08:45)
[2018-03-28] MEDS ORDERED: *HR* Succinylcholine 200 MG/10 ML VIAL IVP ONE (08:45)
[2018-03-28] MEDS ORDERED: *HR* Propofol 200 MG/20 ML VIAL IVP ONE (08:45)
[2018-03-28] MEDS ORDERED: Potassium [Potassium] 99 MG PO SCH (09:00)
[2018-03-28] MEDS ORDERED: Zinc Sulfate 220 MG CAPSULE PO SCH (09:00)
[2018-03-28] MEDS ORDERED: Magnesium Oxide 400 MG TABLET PO SCH (09:00)
[2018-03-28] MEDS ORDERED: *HR* OxyCODONE/APAP 5/325 TABLET PO PRN (09:42)
[2018-03-28] MEDS ORDERED: Ondansetron 4 MG/2 ML VIAL IVP PRN (09:42)
[2018-03-28] MEDS ORDERED: Naloxone 0.4 MG/ML INJ IVP PRN (09:42)
[2018-03-28] MEDS ORDERED: traMADol 50 MG TABLET PO PRN (09:42)
[2018-03-28] MEDS ORDERED: D5% in 0.45% NACL 1,000 ML IVC SCH (09:42)
[2018-03-28] MEDS ORDERED: *HR* Morphine 10 MG/ML VIAL ONE (10:00)
[2018-03-28] MEDS ORDERED: Ethanol\\Acetic Acid\\Na Ace\\Ben 1,000 ML IRRIG.SOLN IR ONE ×2 (10:04→12:03)
[2018-03-28] MEDS ORDERED: Vancomycin 1,000 MG VIAL ONE (10:04)
[2018-03-28] MEDS ORDERED: *HR* PHENYLEPHRINE 1,000 MCG/10 ML SYRINGE IVP ONE (10:27)
[2018-03-28] MEDS ORDERED: *HR* Vasopressin 20 UNIT/ML VIAL ONE (10:35)
[2018-03-28] MEDS ORDERED: *HR* Morphine 2 MG/ML SYRINGE IVP PRN (10:44)
[2018-03-28] MEDS ORDERED: *HR* Promethazine 25 MG/ML VIAL IVP PRN (10:44)
[2018-03-28] MEDS ORDERED: Acetaminophen IV 1,000 MG/100 ML INFUS..BTL IVPB ONE (10:44)
[2018-03-28] MEDS ORDERED: Albumin Human 5% 25.0 GM/500 ML VIAL ONE (10:47)
[2018-03-28 11:23] LABS: Hematocrit 24.3 % (35.3-44.9)
[2018-03-28 11:59] LABS: Hemoglobin 7.6 g/dL (11.5-15.4)
[2018-03-28] MEDS ORDERED: *HR* Phenylephrine 10 MG/ML VIAL ONE (12:35)
[2018-03-28] MEDS ORDERED: Neostigmine Methylsulfate 3 MG/3 ML SYRINGE ONE (13:11)
--- NOTE | 2018-03-28 13:55 | Orthopedic Operative Note ---
Date of procedure: 03/28/18 Pre-op diagnosis: Right femur fracture hardware failure Post-op diagnosis: same Procedure: Procedure: Right femur removal of hardware, open reduction intramedullary nail fixation, open reduction internal fixation Hardware: 4 Arthrex cerclage fiber tape, 2, 4.5 cortical screws, 1 tibial strut , Gray 11 x 380 4, 5.0 locking bolts History of present illness: Patient status post open reduction internal fixation of right femoral nonunion back in November. Patient was seen in the office this past Friday doing well presented back Friday after no trauma with fracture above the old fracture and fracture of the hardware. Patient indicated for urgent surgery. Dictation of surgery: Patient brought to the operating placed on the operative table after general anesthesia was administered the left leg was place in the well leg jones the right leg was placed in the leg jones. The right lower extremity was prepped and draped in the sterile surgical fashion patient received IV antibiotics prior skin incision. A lateral approach is made to the right femur through the old incision the incision was made through the skin and subcutaneous tissue, hemostasis was obtained with Bovie cautery. Fascia was identified and incised the vastus lateralis was elevated up off the lateral femur exposing the plate. The plate was obviously fractured. The cerclage super cables were still intact. These were cut and removed. The previous allograft was fractured and the pieces were removed. 11 screws and both ends of the plate were removed without incident. Fracture site was cultured there is no evidence of pus or any evidence of infection. The wound was irrigated with an antibacterial solution and pulse irrigation. Was then irrigated out with pulse irrigation. The wound was packed with a lap pad soaked in antibacterial solution while attention was turned towards the proximal approach to the greater trochanter a proximal incision was made extending from the greater trochanter. This was localized with fluoroscopy to the patient's morbid obesity. Incision was made through the skin and subcutaneous tissue hemostasis was obtained with Bovie cautery. Using careful blunt dissection the trial was identified with fluoroscopic assistance a guidepin was placed at the entry point position of the guidepin was confirmed in the AP and lateral planes with fluoroscopy. This was overreamed with the proximal reamer. A guidepin was placed down the proximal femur. It passed until it hit a bony roadblock. A reamer was used over the guide pin to open up this bony roadblock within the canal. The beaded guide wire was passed across the fracture site under direct vision. This took some time because this area also had blockage of the canal and required it to be opened up with a curette. With fluoroscopic assistance the femur was reamed up to a size 13. It was measured to be 380. A 380 x 13 Alexandro titanium nail was passed over the guidewire across the fracture site into the distal fragment position of the guidewire as well as fracture reduction was found to be acceptable on fluoroscopic evaluation in both the AP and lateral planes. Under fluoroscopic assistance using standard AO techniques the nail was locked statically distally with fluoroscopic assistance. This is with 2 5.0 locking bolts. Proximally the nail was locked statically at its proximal most portion through the drill guide. Then under fluoroscopic assistance the fracture site was compressed by using the now compression device. This helped compress at the fracture site. At this point time the fourth locking bolt was placed proximally through the guide. Position of the hardware as well as fracture reduction was found to be acceptable with fluoroscopic assistance in multiple planes. The wound was then packed proximally with a antibacterial solution. Distally the wound was irrigated again with an antibacterial solution and pulse irrigation. Was packed with 15 mL of bone stimulator protein with cancellus chips. Open reduction internal fixation at the fracture site was performed with A tibial strut which was approximated to the anterior lateral surface and secured with 4 Arthrex cerclage fiber tapes and 2 4.0 Alexandro cortical screws proximally. Proximally the incision was irrigated out with pulse irrigation antibacterial solution. Both incisions had the fascia closed with #2 PDS suture, both incisions had the deep tissue closed after irrigation with #2 PDS suture followed by #1 PDS suture and the subcutaneous tissue was closed with 0 Monocryl suture. Both incisions were closed with skin macho. Patient was placed in a sterile dressing and a postoperative brace. Patient was extubated and transferred to recovery room in stable condition. Anesthesia: GETA Surgeon: Elbert Winston Was there an scheduling assistant present: No Estimated blood loss (cc): 1,000 Condition: stable Disposition: PACU (Broken Plate and cultures were sent as specimens)
[2018-03-28] MEDS ORDERED: 0.9 % Sodium Chloride 500 ML ONE (14:19)
[2018-03-28 14:24] LABS: Hematocrit 24.1 % (35.3-44.9); Hemoglobin 7.5 g/dL (11.5-15.4)
[2018-03-28] MEDS ORDERED: Ringers Solution, Lactated 1,000 ML ONE (14:51)
[2018-03-28] MEDS ORDERED: Ketorolac 30 MG/ML VIAL IVP ONE (14:57)
--- NOTE | 2018-03-28 15:01 | Anesthesia Evaluation Post Op ---
Date of Encounter: 03/28/18 Time of Encounter: 15:00 - Vital Signs Vital Signs: Vital Signs/O2 Sat, Most Current Temp Pulse Resp BP Pulse Ox 97.7 F 86 16 101/57 95 03/28/18 14:47 03/28/18 14:57 03/28/18 14:57 03/28/18 14:57 03/28/18 14:57 - Lungs Lungs: Clear Ascult./Percussion - Airway Airway: Non-obstructed - Cardiovascular Regular Rate - Mental Status Mental Status: Asleep with brisk response to light stimulation - Nausea Vomiting Nausea Vomiting: Not Present - Hydration Hydration: NPO, Has not voided - Discharge PostOp Status: Transfer Patient to floor
[2018-03-28] MEDS: Famotidine 20 MG TABLET PO SCH (16:23)
[2018-03-28] MEDS ORDERED: Acetaminophen IV 1,000 MG/100 ML INFUS..BTL IVPB PRN (18:22)
[2018-03-28] MEDS: CeFAZolin Pre 2,000 MG/100 ML 2,000 MG/100 ML BAG IVPB SCH (18:25)
[2018-03-28] MEDS ORDERED: Ketorolac 30 MG/ML VIAL IVP PRN (18:27)
[2018-03-28] MEDS ORDERED: Vancomycin (wt based) 1,000 MG VIAL IV SCH (21:00)
[2018-03-28] MEDS: rOPINIRole 1 MG TABLET PO SCH (21:50)
[2018-03-29] MEDS: CeFAZolin Pre 2,000 MG/100 ML 2,000 MG/100 ML BAG IVPB SCH (00:29)
[2018-03-29] MEDS: *HR* OxyCODONE Immed Rel 5 MG TABLET PO PRN ×2 (03:34→08:51)
[2018-03-29 03:39] LABS: Hematocrit 29.7 % (35.3-44.9); Hemoglobin 9.5 g/dL (11.5-15.4)
[2018-03-29] MEDS ORDERED: Furosemide 20 MG/2 ML VIAL IVP ONE (07:20)
[2018-03-29 08:30] LABS: BUN/Creatinine Ratio 18 (6-26); Blood Urea Nitrogen 18 mg/dL (8-23); Carbon Dioxide 22 mEq/L (23-29); Chloride 111 mEq/L (98-107); Glucose 113 mg/dL (70-105); Osmolality,Calculated 289 (280-300); Potassium 5.5 mEq/L (3.5-5.1); Sodium 138 mEq/L (136-145); eGFR For African Americans > 60 (> 60); eGFR For Non-African Americans 54 (> 60)
[2018-03-29] MEDS: Magnesium Oxide 400 MG TABLET PO SCH (08:50)
[2018-03-29] MEDS: Famotidine 20 MG TABLET PO SCH ×2 (08:50→16:30)
[2018-03-29] MEDS: Zinc Sulfate 220 MG CAPSULE PO SCH (08:51)
[2018-03-29] MEDS: Aspirin Enteric Coated 81 MG Tablet PO SCH (08:51)
[2018-03-29] MEDS ORDERED: Aspirin Enteric Coated 81 MG Tablet PO SCH (09:00)
[2018-03-29] MEDS ORDERED: Patient Taking Own Medication 1 EACH PO SCH (09:00)
--- NOTE | 2018-03-29 13:30 | Orthopedics Progress Note ---
Date of Encounter: 03/29/18 Time of Encounter: 13:29 Subjective Principal diagnosis: Right femur nonunion with hardware failure Interval history: Patient complains of mild to moderate pain Right lower extremity: Dressings are clean dry intact, brace intact Bilateral calves soft and nontender, a varus intact distally Postoperative day #1 status post removal hardware with intramedullary nailing, stable Continue DVT prophylaxis PT/OT, nonweightbearing Objective Vital signs: Vital Signs Temp Pulse Resp BP Pulse Ox 03/29/18 12:19 98.8 F 99 17 100/66 91 03/29/18 08:07 98.7 F 95 16 114/75 93 03/29/18 07:30 93 03/29/18 05:13 98.8 F 90 16 102/65 98 03/29/18 00:01 97.8 F 92 16 102/68 98 03/28/18 19:24 97.5 F L 77 18 113/76 100 03/28/18 18:20 77 16 113/67 99 03/28/18 18:05 97.6 F 78 16 112/78 100 03/28/18 17:20 97.6 F 81 16 106/74 96 03/28/18 16:50 97.4 F L 72 16 127/84 100 03/28/18 16:20 97.4 F L 76 16 117/80 96 03/28/18 16:05 97.4 F L 77 14 107/71 99 03/28/18 15:50 97.4 F L 88 14 105/68 96 03/28/18 15:35 97.5 F L 80 14 104/68 96 03/28/18 15:17 97.9 F 82 16 105/59 96 03/28/18 15:07 86 16 97/58 97 03/28/18 14:57 86 16 101/57 95 03/28/18 14:47 97.7 F 85 16 95/56 97 03/28/18 14:37 86 16 101/57 96 03/28/18 14:27 84 16 94/50 92 03/28/18 14:17 97.9 F 91 16 80/57 93 03/28/18 14:07 93 16 91/54 94 03/28/18 13:57 90 16 112/52 95 03/28/18 13:47 97.8 F 89 16 106/74 100 Intake and Output 03/28/18 03/29/18 03/29/18 23:59 07:59 15:59 Intake Total 650 / 650 120 / 120 Output Total 650 / 650 Balance 650 / 650 -650 / -650 120 / 120 Intake: IV Fluids 350 / 350 Ancef Premix 2,000 MG/100 ML 2, 100 / 100 000 mg In 100 ml @ 200 mls/hr IVPB Q8HR [facility] Rx#:[id number] Vancocin 1,000 MG In 0.9 % 250 / 250 Sodium Chloride 250 ML @ 167 mls/hr IVPB Q12H [facility] Rx#: [id number] Oral 120 / 120 Blood Product 300 / 300 Rbcs Leuko Poor As-1 Unit 300 / 300 [id number] Output: Urine 650 / 650 Other: Meal Breakfast Percent of Meal Consumed 80% - Labs CBC & BMP: 03/29/18 03:01 03/29/18 08:00 Labs: Abnormal lab results Hgb 9.5 g/dL (11.5-15.4) L D 03/29/18 03:01 Hct 29.7 % (35.3-44.9) L 03/29/18 03:01 MCH 26.9 pg (28.0-33.3) L 03/27/18 19:16 RDW 15.9 % (11.5-14.5) H 03/27/18 19:16 MPV 9.2 fL (9.4-12.4) L 03/27/18 19:16 Potassium 5.5 mEq/L (3.5-5.1) H 03/29/18 08:00 Chloride 111 mEq/L (98-107) H 03/29/18 08:00 Carbon Dioxide 22 mEq/L (23-29) L 03/29/18 08:00 Est GFR (Non-Af Amer) 54 (> 60) L 03/29/18 08:00 Glucose 113 mg/dL (70-105) H 03/29/18 08:00 Calcium 8.0 mg/dL (8.6-10.3) L 03/29/18 08:00 - VTE Documentation of Mechanical Device: Venous foot pump, device Consult Discharge Plan - Plan Referrals: Ashlie Shea, THREADING MACHINE SETTER [Primary Care Provider] -
[2018-03-29] MEDS: rOPINIRole 1 MG TABLET PO SCH (20:20)
[2018-03-30 02:12] LABS: Hematocrit 22.9 % (35.3-44.9)
[2018-03-30 02:14] LABS: Hemoglobin 7.5 g/dL (11.5-15.4)
[2018-03-30 02:30] LABS: BUN/Creatinine Ratio 19 (6-26); Blood Urea Nitrogen 16 mg/dL (8-23); Calcium 7.9 mg/dL (8.6-10.3); Carbon Dioxide 25 mEq/L (23-29); Chloride 104 mEq/L (98-107); Glucose 115 mg/dL (70-105); Osmolality,Calculated 276 (280-300); Potassium 4.1 mEq/L (3.5-5.1); Sodium 132 mEq/L (136-145); eGFR For African Americans > 60 (> 60); eGFR For Non-African Americans > 60 (> 60)
[2018-03-30] MEDS ORDERED: 0.9 % Sodium Chloride 250 ML ONE (04:27)
[2018-03-30] MEDS: Famotidine 20 MG TABLET PO SCH ×2 (06:48→15:33)
--- NOTE | 2018-03-30 08:04 | Orthopedics Progress Note ---
Date of Encounter: 03/30/18 Time of Encounter: 08:04 Subjective Principal diagnosis: Right femur nonunion with hardware failure Interval history: Patient was seen this morning doing well without complaints. Afebrile vital signs stable. Operative extremity: Neurovascularly intact Dressing clean dry and intact Calves nontender Assessment and plan: Continue with postoperative care Hemoglobin 7.5 transfuse 2 units Objective Vital signs: Vital Signs Temp Pulse Resp BP Pulse Ox 03/30/18 06:45 99.9 F H 98 16 106/71 92 03/30/18 06:35 98.9 F 87 16 108/64 94 03/30/18 06:21 100.3 F H 99 16 110/75 96 03/30/18 04:38 100.1 F H 100 18 105/70 98 03/29/18 23:28 99.6 F 95 16 92/57 97 03/29/18 21:10 99.9 F H 102 17 108/58 97 03/29/18 12:19 98.8 F 99 17 100/66 91 03/29/18 08:07 98.7 F 95 16 114/75 93 Intake and Output 03/29/18 03/30/18 03/30/18 23:59 07:59 15:59 Intake Total 250 / 250 336 / 336 Balance 250 / 250 336 / 336 Intake: IV Fluids 250 / 250 Vancocin 1,000 MG In 0.9 % 250 / 250 Sodium Chloride 250 ML @ 167 mls/hr IVPB Q12H [facility] Rx#: [id number] Blood Product 336 / 336 Rbcs Leuko Poor As-1 Unit 0 / 0 [id number] Rbcs Leuko Poor As-1 Unit 336 / 336 [id number] Other: # Voids 1 Weight 95 kg - Labs CBC & BMP: 03/30/18 02:00 03/30/18 02:00 Labs: Abnormal lab results Hgb 7.5 g/dL (11.5-15.4) L D 03/30/18 02:00 Hct 22.9 % (35.3-44.9) L 03/30/18 02:00 MCH 26.9 pg (28.0-33.3) L 03/27/18 19:16 RDW 15.9 % (11.5-14.5) H 03/27/18 19:16 MPV 9.2 fL (9.4-12.4) L 03/27/18 19:16 Sodium 132 mEq/L (136-145) L 03/30/18 02:00 Glucose 115 mg/dL (70-105) H 03/30/18 02:00 Calculated Osmolality 276 (280-300) L 03/30/18 02:00 Calcium 7.9 mg/dL (8.6-10.3) L 03/30/18 02:00 Vancomycin Trough 16 mcg/mL (5-10) H 03/30/18 02:00 - VTE Documentation of Mechanical Device: Venous foot pump, device Consult Discharge Plan - Plan Referrals: Ashlie Shea, CHUTE TAPPER [Primary Care Provider] -
--- NOTE | 2018-03-30 08:07 | Discharge Summary ---
Orders not resulted at time of discharge: Pending orders 03/27/18 18:52 EKG [ECG 12 lead ECG] [ECG] Routine 03/28/18 13:04 Surgical Pathology [PTH] Routine 03/28/18 17:15 Culture,Anaerobic [RM] Routine Date of Encounter: 04/01/18 Time of Encounter: 08:51 - Discharge Diagnosis (1) Hardware failure Priority: Primary Status: Acute (2) Obesity (BMI 35.0-39.9 without comorbidity) Priority: Secondary Status: Chronic (3) Femur fracture, right Priority: Primary Status: Acute Qualifiers: Encounter type: subsequent encounter Femur location: shaft Fracture type : closed Fracture morphology: unspecified fracture morphology Fracture healing: with routine healing Qualified Code(s): S72.301D - Unspecified fracture of shaft of right femur, subsequent encounter for closed fracture with routine healing (4) Moderate to severe pulmonary hypertension Priority: Secondary Status: Chronic (5) PVC (premature ventricular contraction) Priority: Secondary Status: Chronic (6) Status post open reduction with internal fixation of fracture Priority: Secondary Status: Chronic (7) GERD (gastroesophageal reflux disease) Priority: Secondary Status: Chronic Qualifiers: Esophagitis presence: without esophagitis Qualified Code(s): K21.9 - Gastro -esophageal reflux disease without esophagitis (8) Acute blood loss anemia Priority: Primary Status: Acute - Hospital Course Hospital course: Ms. Wells is a 67 year old female Patient status post femur fracture with hardware failure patient status post removal of hardware with revision to intramedullary nail fixation and open reduction internal fixation. Patient with postoperative acute blood loss anemia requiring 4 units of transfusion. Discharge hemoglobin 10 discharged today patient received antibiotics and physical therapy on hospital. - Time Spent with Patient Total time spent providing and/or coordinating discharge services: - Discharge Medications Prescriptions: OxyCODONE Immed Rel [Roxicodone 5 MG] 5 mg PO Q4HR PRN 5 Days #20 tablet PRN Reason: Pain Sulfamethoxazole/Trimeth DS [Bactrim DS] 1 each PO BID #20 tablet Home Medications: Amitriptyline [Elavil] 50 mg PO HS 08/04/17 [History] Buspirone HCl [Buspar] 5 mg PO TID 08/04/17 [History] Docusate [Colace] 100 mg PO DAILY 08/04/17 [History] Ferrous Sulfate [Iron] 325 mg PO DAILY 08/04/17 [History] Magnesium Oxide [Magnesium] 400 mg PO DAILY 08/04/17 [History] Omeprazole [PriLOSEC] 20 mg PO DAILY 08/04/17 [History] Potassium 99 mg PO DAILY 08/04/17 [History] Ranitidine HCl [Acid Jockey Agent] 150 mg PO BID 08/04/17 [History] Zinc Sulfate 220 mg PO DAILY 08/04/17 [History] rOPINIRole [Requip] 1 mg PO HS 08/04/17 [History] Sertraline [Zoloft] 50 mg PO DAILY 12/19/17 [History] Calcium Carbonate [Calcium] 500 mg PO DAILY 03/29/18 [History] Cholecalciferol (D-3) [Vitamin D] 2,000 unit PO DAILY 03/29/18 [History] OxyCODONE Immed Rel [Roxicodone 5 MG] 5 mg PO Q4HR PRN 5 Days #20 tablet [Rx] Sulfamethoxazole/Trimeth DS [Bactrim DS] 1 each PO BID #20 tablet 03/30/18 [Rx] Allergies/Adverse Reactions: 3 Allergy/AdvReac Type Severity Reaction Status Date / Time No Known Allergies Allergy Verified 03/29/18 11:40 Date of admission: 03/28/18 09:14 Primary care physician: Ashlie Shea CNP Consults: 03/28/18 09:42 Consult to Occupational Therapy [CONS] Routine Comment: Evaluate, develop and implement POC Reason for Consult: Nonweightbearing right lower extremity Does patient have active BEDREST order?: No Is patient medically & hemodynamically stable?: Yes Patient assessed for mobility or mobilized this visit?: Yes Consult to Orthopedic Navigator [CONS] [CONS] Routine Consult to Physical Therapy [CONS] Routine Comment: Evaluate, develop and implement POC Reason for Consult: Nonweightbearing right lower extremity Does patient have active BEDREST order?: No Is patient medically & hemodynamically stable?: Yes Patient assessed for mobility or mobilized this visit?: Yes Consult to Detention Deputy [CONS] Routine Reason for SW Consult: Discharge planning RT Post Op Consult [CONS] Routine - VTE Documentation of Mechanical Device: Venous foot pump, device Labs on day of discharge: Labs from last 24 hours 03/30/18 03/30/18 03/30/18 02:00 02:00 02:00 Hgb 7.5 L D Hct 22.9 L Sodium 132 L Potassium 4.1 D Chloride 104 Carbon Dioxide 25 BUN 16 Creatinine 0.85 Est GFR ( Amer) > 60 Est GFR (Non-Af Amer) > 60 BUN/Creatinine Ratio 19 Glucose 115 H Calculated Osmolality 276 L Calcium 7.9 L Vancomycin Trough 16 H Blood Type Antibody Screen Crossmatch 03/29/18 03/28/18 08:00 12:56 Hgb Hct Sodium 138 Potassium 5.5 H Chloride 111 H Carbon Dioxide 22 L BUN 18 Creatinine 1.02 Est GFR ( Amer) > 60 Est GFR (Non-Af Amer) 54 L BUN/Creatinine Ratio 18 Glucose 113 H Calculated Osmolality 289 Calcium 8.0 L Vancomycin Trough Blood Type AB POSITIVE Antibody Screen NEGATIVE Crossmatch See Detail - Impressions ITS Impressions Chest X-Ray 03/27/18 18:52 IMPRESSION: No acute process. D/ / Lucho Sibley MD / Lucho Sibley MD Interpreting Provider: Lucho Sibley MD Femur X-Ray 03/28/18 00:00 IMPRESSION: Intraprocedural fluoroscopic spot images as above. See separate procedure report for more information. D/ / Chi Liriano MD / Chi Liriano MD Interpreting Provider: Chi Liriano MD Fluoroscopy 03/28/18 00:00 IMPRESSION: Intraprocedural fluoroscopic spot images as above. See separate procedure report for more information. D/ / Chi Liriano MD / Chi Liriano MD Interpreting Provider: Chi Liriano MD Femur X-Ray 03/28/18 09:09 IMPRESSION: 1. Expected new postoperative changes of redo internal fixation of the right femur. 2. Nonunited healing fracture of the distal right femoral diaphysis improved near anatomic alignment. 3. Right total knee arthroplasty without complication. 4. Bony demineralization. D/ / Chi Liriano MD / Chi Liriano MD Interpreting Provider: Chi Liriano MD - Patient Status Disposition: Home Health Service Condition: Good Functional capacity at discharge: uses cane/walker Overall status at discharge: patient is progressing back to baseline - Discharge Instructions Follow Up With: Ashlie Shea, VERTICAL LATHE OPERATOR [Primary Care Provider] -
[2018-03-30] MEDS: Aspirin Enteric Coated 81 MG Tablet PO SCH (09:11)
[2018-03-30] MEDS: Magnesium Oxide 400 MG TABLET PO SCH (09:11)
[2018-03-30] MEDS: Zinc Sulfate 220 MG CAPSULE PO SCH (09:11)
[2018-03-30] MEDS: *HR* OxyCODONE Immed Rel 5 MG TABLET PO PRN (09:16)
[2018-03-30] MEDS: rOPINIRole 1 MG TABLET PO SCH (20:53)
[2018-03-30] MEDS: Benzonatate 100 MG CAPSULE PO PRN (22:44)
[2018-03-31 02:04] LABS: Hematocrit 29.4 % (35.3-44.9)
--- NOTE | 2018-03-31 06:51 | Orthopedics Progress Note ---
Date of Encounter: 03/31/18 Time of Encounter: 06:50 - Assessment and Plan (1) Hardware failure Current Visit: Yes Status: Acute (2) Obesity (BMI 35.0-39.9 without comorbidity) Current Visit: Yes Status: Chronic (3) Femur fracture, right Current Visit: No Status: Acute Qualifiers: Encounter type: subsequent encounter Femur location: shaft Fracture type : closed Fracture morphology: unspecified fracture morphology Fracture healing: with routine healing Qualified Code(s): S72.301D - Unspecified fracture of shaft of right femur, subsequent encounter for closed fracture with routine healing (4) Moderate to severe pulmonary hypertension Current Visit: No Status: Chronic (5) PVC (premature ventricular contraction) Current Visit: No Status: Chronic (6) Status post open reduction with internal fixation of fracture Current Visit: No Status: Chronic (7) GERD (gastroesophageal reflux disease) Current Visit: No Status: Chronic Qualifiers: Esophagitis presence: without esophagitis Qualified Code(s): K21.9 - Gastro -esophageal reflux disease without esophagitis Subjective Principal diagnosis: Right femur nonunion with hardware failure Interval history: Patient was seen this morning doing well without complaints. Afebrile vital signs stable. Operative extremity: Neurovascularly intact Dressing clean dry and intact Calves nontender Assessment and plan: Continue with postoperative care Hemoglobin 10 plan for discharge tomorrow Objective Vital signs: Vital Signs Temp Pulse Resp BP Pulse Ox 03/31/18 06:30 98.9 F 102 16 114/65 93 03/31/18 03:12 99.1 F 100 16 102/69 94 03/31/18 01:43 99.9 F H 03/31/18 00:37 100.3 F H 03/30/18 22:56 100.7 F H 104 16 110/73 91 03/30/18 21:01 90 03/30/18 19:08 99.7 F H 118 18 141/83 90 03/30/18 09:46 98.8 F 92 18 111/67 95 03/30/18 08:50 99.8 F H 97 19 105/73 93 Intake and Output 03/30/18 03/30/18 03/31/18 15:59 23:59 07:59 Intake Total 550 / 550 350 / 350 Output Total 400 / 400 300 / 300 Balance 550 / 550 -50 / -50 -300 / -300 Intake: IV Fluids 250 / 250 250 / 250 Vancocin 1,000 MG In 0.9 % 250 / 250 250 / 250 Sodium Chloride 250 ML @ 167 mls/hr IVPB Q12H [facility] Rx#: [id number] Oral 100 / 100 Blood Product 300 / 300 Rbcs Leuko Poor As-1 Unit 300 / 300 [id number] Output: Urine 400 / 400 300 / 300 Other: # Voids 1 Weight 93.9 kg Patient Weight 03/31/18 23:59 Weight 93.9 kg - Labs CBC & BMP: 03/31/18 01:55 03/30/18 02:00 Labs: Abnormal lab results Hgb 10.0 g/dL (11.5-15.4) L D 03/31/18 01:55 Hct 29.4 % (35.3-44.9) L 03/31/18 01:55 MCH 26.9 pg (28.0-33.3) L 03/27/18 19:16 RDW 15.9 % (11.5-14.5) H 03/27/18 19:16 MPV 9.2 fL (9.4-12.4) L 03/27/18 19:16 Sodium 132 mEq/L (136-145) L 03/30/18 02:00 Glucose 115 mg/dL (70-105) H 03/30/18 02:00 Calculated Osmolality 276 (280-300) L 03/30/18 02:00 Calcium 7.9 mg/dL (8.6-10.3) L 03/30/18 02:00 Vancomycin Trough 16 mcg/mL (5-10) H 03/30/18 02:00 - VTE Documentation of Mechanical Device: Venous foot pump, device Consult Discharge Plan - Plan Referrals: Ashlie Shea, MUSEUM PREPARATOR [Primary Care Provider] - Prescriptions: OxyCODONE Immed Rel [Roxicodone 5 MG] 5 mg PO Q4HR PRN 5 Days #20 tablet PRN Reason: Pain Sulfamethoxazole/Trimeth DS [Bactrim DS] 1 each PO BID #20 tablet
[2018-03-31] MEDS: Famotidine 20 MG TABLET PO SCH ×2 (08:30→17:03)
[2018-03-31] MEDS: Magnesium Oxide 400 MG TABLET PO SCH (08:30)
[2018-03-31] MEDS: *HR* OxyCODONE Immed Rel 5 MG TABLET PO PRN ×2 (08:31→20:46)
[2018-03-31] MEDS: Aspirin Enteric Coated 81 MG Tablet PO SCH (08:31)
[2018-03-31] MEDS: Zinc Sulfate 220 MG CAPSULE PO SCH (08:31)
[2018-03-31] MEDS ORDERED: 0.9 % Sodium Chloride 250 ML ONE (15:49)
--- NOTE | 2018-03-31 15:59 | Electrocardiograph Report ---
[place] [id number] Test Date: 2018-03-28 Pat Name: Flaca Wells Department: 114 Room: [facility] Gender: F Director Inbound Sales: REANNA : 1950 Requested By: Elbert Winston Order Number: [id number] Reading MD: Adrian Castillo Measurements Intervals [place] Rate: 83 P: 66 WA: 158 QRS: 70 QRSD: 99 T: 75 QT: 385 QTc: 425 Interpretive Statements SINUS RHYTHM Electronically Signed On 03-31-2018 15:57:28 EDT by Adrian Castillo
[2018-03-31] MEDS: Benzonatate 100 MG CAPSULE PO PRN (18:08)
[2018-03-31] MEDS: rOPINIRole 1 MG TABLET PO SCH (20:47)
[2018-04-01] MEDS: Benzonatate 100 MG CAPSULE PO PRN ×2 (04:50→13:40)
[2018-04-01] MEDS: Magnesium Oxide 400 MG TABLET PO SCH (07:44)
[2018-04-01] MEDS: Famotidine 20 MG TABLET PO SCH (07:44)
[2018-04-01] MEDS: Zinc Sulfate 220 MG CAPSULE PO SCH (07:44)
[2018-04-01] MEDS: Aspirin Enteric Coated 81 MG Tablet PO SCH (07:44)
--- NOTE | 2018-04-01 08:53 | Orthopedics Progress Note ---
Date of Encounter: 04/01/18 Time of Encounter: 08:52 - Assessment and Plan (1) Hardware failure Current Visit: Yes Status: Acute (2) Obesity (BMI 35.0-39.9 without comorbidity) Current Visit: Yes Status: Chronic (3) Femur fracture, right Current Visit: No Status: Acute Qualifiers: Encounter type: subsequent encounter Femur location: shaft Fracture type : closed Fracture morphology: unspecified fracture morphology Fracture healing: with routine healing Qualified Code(s): S72.301D - Unspecified fracture of shaft of right femur, subsequent encounter for closed fracture with routine healing (4) Moderate to severe pulmonary hypertension Current Visit: No Status: Chronic (5) PVC (premature ventricular contraction) Current Visit: No Status: Chronic (6) Status post open reduction with internal fixation of fracture Current Visit: No Status: Chronic (7) GERD (gastroesophageal reflux disease) Current Visit: No Status: Chronic Qualifiers: Esophagitis presence: without esophagitis Qualified Code(s): K21.9 - Gastro -esophageal reflux disease without esophagitis (8) Acute blood loss anemia Current Visit: Yes Status: Acute Subjective Principal diagnosis: Right femur nonunion with hardware failure Interval history: Patient was seen this morning doing well without complaints. Afebrile vital signs stable. Operative extremity: Neurovascularly intact Dressing clean dry and intact Calves nontender Assessment and plan: Continue with postoperative care Hemoglobin 10 plan for discharge today Objective Vital signs: Vital Signs Temp Pulse Resp BP Pulse Ox 04/01/18 07:47 97.7 F 88 17 97/67 93 04/01/18 04:26 98.8 F 92 16 107/72 95 04/01/18 00:37 98.1 F 86 15 105/74 96 03/31/18 20:44 98.8 F 86 17 105/71 96 03/31/18 15:33 97.6 F 98 18 93/66 96 03/31/18 11:40 98.7 F 98 18 94/63 93 Intake and Output 03/31/18 04/01/18 04/01/18 23:59 07:59 15:59 Intake Total 450 / 450 250 / 250 Balance 450 / 450 250 / 250 Intake: IV Fluids 250 / 250 250 / 250 Vancocin 1,000 MG In 0.9 % 250 / 250 250 / 250 Sodium Chloride 250 ML @ 167 mls/hr IVPB Q12H [facility] Rx#: [id number] Oral 200 / 200 Other: Meal Dinner Percent of Meal Consumed 100% # Voids 2 1 Weight 94.5 kg - Labs CBC & BMP: 03/31/18 01:55 03/30/18 02:00 Labs: Abnormal lab results Hgb 10.0 g/dL (11.5-15.4) L D 03/31/18 01:55 Hct 29.4 % (35.3-44.9) L 03/31/18 01:55 MCH 26.9 pg (28.0-33.3) L 03/27/18 19:16 RDW 15.9 % (11.5-14.5) H 03/27/18 19:16 MPV 9.2 fL (9.4-12.4) L 03/27/18 19:16 Sodium 132 mEq/L (136-145) L 03/30/18 02:00 Glucose 115 mg/dL (70-105) H 03/30/18 02:00 Calculated Osmolality 276 (280-300) L 03/30/18 02:00 Calcium 7.9 mg/dL (8.6-10.3) L 03/30/18 02:00 Vancomycin Trough 16 mcg/mL (5-10) H 03/30/18 02:00 - VTE Documentation of Mechanical Device: Venous foot pump, device Consult Discharge Plan - Plan Referrals: Ashlie Shea, [employer] AND [employer] PLANNER [Primary Care Provider] - Prescriptions: OxyCODONE Immed Rel [Roxicodone 5 MG] 5 mg PO Q4HR PRN 5 Days #20 tablet PRN Reason: Pain Sulfamethoxazole/Trimeth DS [Bactrim DS] 1 each PO BID #20 tablet
[2018-04-01] MEDS: *HR* OxyCODONE Immed Rel 5 MG TABLET PO PRN (13:40)
[2018-04-01 16:26] VITALS: BP 113/78
[2018-04-01] MEDS ORDERED: Aminoglycoside Consult 1 EACH MC ONE (17:45)
--- NOTE | 2018-04-02 17:49 | Event Note ---
Date of Encounter: 03/31/18 Time of Encounter: 16:00 PCR- POD# 3 Date of procedure: 03/28/18 Pre-op diagnosis: Right femur fracture hardware failure Post-op diagnosis: same Procedure: Right femur removal of hardware, open reduction intramedullary nail fixation, open reduction internal fixation PCR - Patient seen at bedside. Labwork and medications reviewed. Patient received 4 total units PRBCS during this admission Pain control: Adequate Participating in PT. All questions and concerns addressed. Educated on use of incentive spirometer, ambulation, and hydration. Patient educated on post-operative restrictions and care. Addressed: NO knee motion; Bone stimulator 3 hrs daily - bracing team from [facility] office educated proper use. D/C plan: Home with Home Health once medically stable.
--- NOTE | 2018-04-02 17:50 | Event Note ---
Date of Encounter: 04/01/18 Time of Encounter: 16:00 PCR- POD# 4 Date of procedure: 03/28/18 Pre-op diagnosis: Right femur fracture hardware failure Post-op diagnosis: same Procedure: Right femur removal of hardware, open reduction intramedullary nail fixation, open reduction internal fixation PCR - Patient seen at bedside. Labwork and medications reviewed. Patient received 4 total units PRBCS during this admission Pain control: Adequate Participating in PT. All questions and concerns addressed. Educated on use of incentive spirometer, ambulation, and hydration. Patient educated on post-operative restrictions and care. Addressed: NO knee motion; Bone stimulator 3 hrs daily - bracing team from [facility] office educated proper use. D/C plan: Home with Home Health once medically stable.
--- NOTE | 2018-04-02 17:52 | Physician Discharge Referral ---
Home Health/Hosp Referral Info Transfer to: Home Health Attending Provider: Dr. Winston - Diagnosis (1) Comminuted fracture of shaft of femur Priority: Primary Status: Acute (2) Status post open reduction with internal fixation of fracture Priority: Primary Status: Chronic (3) GERD (gastroesophageal reflux disease) Priority: Secondary Status: Chronic (4) Hardware failure Priority: Secondary Status: Acute - Respiratory Orders Smoking Cessation: Smoking cessation has been advised. For more information, call the [place] Tobacco Quit Line at 6-159-JTMK-NOW. - Dressing/Wound Care Site: right leg Type of Dressing/Treatments w/Frequency: Opsite placed. Keep dressing intact until first follow up appointment. If greater than 50% saturated, notify office, remove dressing and place appropriate dressing back in place. Leave Zipline/macho intact. Opsite dressing is water resistant, not water-proof. OK to shower, but do not get dressing wet. - Diet/Nutrition Diet/Nutrition Orders: Regular - Activity Activity Orders: Up ad jean paul, Ambulate, Chair, Walker - Services Needed Following services are medically necessary services: Nursing, Home Health Aide, Physical Therapy, Occupational Therapy Home Care Orders: Total Knee replacement Precautions x 6 weeks Apply cold therapy wrap 3-6x/day for 20 minutes at a time. Encourage ambulation throughout the day and incentive spirometer 10x/hour. Elevate affected extremity above heart as tolerated. Brace: WEAR BRACE IN LOCKED EXTENSION AT ALL TIMES TO KNEE. REMOVE ONLY FOR HYGIENE. - Transfer Medications Prescriptions: OxyCODONE Immed Rel [Roxicodone 5 MG] 5 mg PO Q4HR PRN 5 Days #20 tablet PRN Reason: Pain Sulfamethoxazole/Trimeth DS [Bactrim DS] 1 each PO BID #20 tablet Home Medications: Amitriptyline [Elavil] 50 mg PO HS 08/04/17 [History] Buspirone HCl [Buspar] 5 mg PO TID 08/04/17 [History] Docusate [Colace] 100 mg PO DAILY 08/04/17 [History] Ferrous Sulfate [Iron] 325 mg PO DAILY 08/04/17 [History] Magnesium Oxide [Magnesium] 400 mg PO DAILY 08/04/17 [History] Omeprazole [PriLOSEC] 20 mg PO DAILY 08/04/17 [History] Potassium 99 mg PO DAILY 08/04/17 [History] Ranitidine HCl [Acid Paste Worker] 150 mg PO BID 08/04/17 [History] Zinc Sulfate 220 mg PO DAILY 08/04/17 [History] rOPINIRole [Requip] 1 mg PO HS 08/04/17 [History] Sertraline [Zoloft] 50 mg PO DAILY 12/19/17 [History] Calcium Carbonate [Calcium] 500 mg PO DAILY 03/29/18 [History] Cholecalciferol (D-3) [Vitamin D] 2,000 unit PO DAILY 03/29/18 [History] OxyCODONE Immed Rel [Roxicodone 5 MG] 5 mg PO Q4HR PRN 5 Days #20 tablet [Rx] Sulfamethoxazole/Trimeth DS [Bactrim DS] 1 each PO BID #20 tablet 03/30/18 [Rx] Allergies/Adverse Reactions: 3 Allergy/AdvReac Type Severity Reaction Status Date / Time No Known Allergies Allergy Verified 03/29/18 11:40 Certification: Further, I certify that my clinical findings support that this patient is homebound (i.e. absences from home require considerable and taxing effort and are for medical reasons or buddhist services or infrequently or short duration when for other reasons) because: Homebound Reason: Post-surgery restriction and or conditions limit ability to leave home Attestation: My signature below is to certify that this patient is under my care and that I, or nurse practitioner, or a physician social work assistant working with me, has a face-to- face encounter with this patient.
== END 2018-04-01 17:46 | disposition home health service (06) | DRG 464 ==
LOC: 3NENU
PROVIDERS: ADMIT Orthopaedic Surgery; ATTEND Orthopaedic Surgery

== ENCOUNTER 2019-10-15 10:47 | Inpatient (IN) ==
[2019-10-15] MEDS ORDERED: Naloxone 0.4 MG/ML INJ IVP PRN ×2 (14:12→19:36)
[2019-10-15] MEDS ORDERED: Ondansetron ODT 4 MG TAB.RAPDIS SL PRN ×2 (14:12→21:15)
[2019-10-15] MEDS ORDERED: 0.9 % Sodium Chloride 1,000 ML IVC SCH (14:15)
[2019-10-15 15:05] LABS: INR 0.9; Prothrombin Time 10.6 Seconds (9.4-12.1)
[2019-10-15] MEDS ORDERED: Scopolamine Patch 1.5 MG PATCH.TD72 TD ONE (17:20)
[2019-10-15] MEDS ORDERED: *HR* Propofol 200 MG/20 ML VIAL IVP ONE (17:20)
[2019-10-15] MEDS ORDERED: Lidocaine -MPF 2% 2 ML VIAL ONE (17:20)
[2019-10-15] MEDS ORDERED: Bupivacaine/EPI 1:200k 0.5%PF 10 ML VIAL ONE (17:29)
[2019-10-15] MEDS ORDERED: *HR* FentaNYL (PF) 100 MCG/2 ML VIAL ONE (17:40)
[2019-10-15] MEDS ORDERED: Ondansetron 4 MG/2 ML VIAL ONE (18:10)
[2019-10-15] MEDS ORDERED: Dexamethasone 4 MG/ML VIAL ONE (18:10)
[2019-10-15] MEDS ORDERED: Ampicillin/Sulbactam 3,000 MG in 0.9 % Sodium Chloride 100 ML IVPB SCH (19:00)
[2019-10-15] MEDS ORDERED: tiZANidine 4 MG TABLET PO SCH (21:00)
[2019-10-15] MEDS ORDERED: rOPINIRole 1 MG TABLET PO SCH (21:00)
[2019-10-15] MEDS: rOPINIRole 1 MG TABLET PO SCH (21:24)
[2019-10-15] MEDS: tiZANidine 4 MG TABLET PO SCH (21:24)
[2019-10-15] MEDS: 0.9 % Sodium Chloride 1,000 ML IVC SCH (21:27)
[2019-10-15 23:59] LABS: Bilirubin,Urine Negative (Negative); Blood,Urine Negative (Negative); Clarity,Urine Clear (Clear); Color,Urine Yellow (Yellow); Glucose,Urine (UA) Normal (Normal); Ketones,Urine Negative (Negative); Leukocyte Esterase,Urine Negative (Negative); Nitrite,Urine Negative (Negative); PH,Urine 5.5 pH Units (5.0-8.0); Protein,Urine Negative (Neg-Trace); Specific Gravity,Urine 1.023 (1.010-1.025); Urobilinogen,Urine Normal (Normal)
[2019-10-16] MEDS: Ampicillin/Sulbactam 3,000 MG in 0.9 % Sodium Chloride 100 ML IVPB SCH ×4 (00:01→19:19)
[2019-10-16 00:44] LABS: Basophils # 0.1 K/mcL (0.0-0.2); Basophils % 0.7 %; Eosinophils % 0.1 %; Hematocrit 40.4 % (35.3-44.9); Hemoglobin 12.5 g/dL (11.5-15.4); Immature Granulocytes % 0.1 % (0-4); Lymphocytes # 0.6 K/mcL (0.6-4.6); Lymphocytes % 8.3 %; Mean Corpuscular HGB Conc 30.9 g/dL (31.6-35.5); Mean Corpuscular Hemoglobin 28.2 pg (28.0-33.3); Mean Platelet Volume 9.7 fL (9.4-12.4); Monocytes # 0.1 K/mcL (0.0-1.3); Monocytes % 1.4 %; Neutrophils # 6.6 K/mcL (1.6-8.9); Platelet Count 222 K/mcL (140-400); Red Blood Count 4.44 M/mcL (3.82-4.97); Segmented Neutrophils % 89.4 %; White Blood Count 7.4 K/mcL (4.3-11.1)
[2019-10-16 01:00] LABS: Alanine Aminotransferase 5 Units/L (7-52); Albumin 3.8 g/dL (3.5-5.7); Albumin/Globulin Ratio 1.5 (1.1-2.2); Alkaline Phosphatase 69 Units/L (34-104); Aspartate Amino Transferase 11 Units/L (13-39); BUN/Creatinine Ratio 18 (6-26); Bilirubin,Total 0.3 mg/dL (0.3-1.0); Blood Urea Nitrogen 17 mg/dL (8-23); Calcium 8.4 mg/dL (8.6-10.3); Carbon Dioxide 23 mEq/L (23-29); Chloride 107 mEq/L (98-107); Globulin 2.5 g/dL (2.4-3.5); Glucose 153 mg/dL (70-105); Magnesium 1.9 mg/dL (1.6-2.6); Osmolality,Calculated 291 (280-300); Phosphorous 4.1 mg/dL (2.7-4.5); Potassium 4.8 mEq/L (3.5-5.1); Sodium 138 mEq/L (136-145); Total Protein 6.3 g/dL (6.4-8.9); eGFR For African Americans > 60 (> 60); eGFR For Non-African Americans 57 (> 60)
[2019-10-16] MEDS: 0.9 % Sodium Chloride 1,000 ML IVC SCH (02:32)
[2019-10-16] MEDS: Acetaminophen 325 MG TABLET PO PRN (16:07)
[2019-10-16] MEDS: rOPINIRole 1 MG TABLET PO SCH (20:40)
[2019-10-16] MEDS: tiZANidine 4 MG TABLET PO SCH (20:42)
[2019-10-17] MEDS: Ampicillin/Sulbactam 3,000 MG in 0.9 % Sodium Chloride 100 ML IVPB SCH ×4 (01:04→17:27)
[2019-10-17 17:01] LABS: Hematocrit 42.6 % (35.3-44.9); Hemoglobin 13.9 g/dL (11.5-15.4); Mean Corpuscular HGB Conc 32.6 g/dL (31.6-35.5); Mean Corpuscular Hemoglobin 28.4 pg (28.0-33.3); Mean Corpuscular Volume 86.9 fL (83.0-100.0); Mean Platelet Volume 9.3 fL (9.4-12.4); Platelet Count 250 K/mcL (140-400); Red Cell Distribution Width 15.2 % (11.5-14.5); White Blood Count 7.7 K/mcL (4.3-11.1)
[2019-10-17 17:20] LABS: Calcium 9.7 mg/dL (8.6-10.3); Magnesium 1.9 mg/dL (1.6-2.6); Potassium 4.1 mEq/L (3.5-5.1)
[2019-10-17] MEDS: Acetaminophen 325 MG TABLET PO PRN (19:57)
[2019-10-17] MEDS: rOPINIRole 1 MG TABLET PO SCH (19:58)
[2019-10-17] MEDS: tiZANidine 4 MG TABLET PO SCH (19:58)
[2019-10-18] MEDS: Ampicillin/Sulbactam 3,000 MG in 0.9 % Sodium Chloride 100 ML IVPB SCH ×3 (00:54→11:46)
[2019-10-18 01:58] LABS: Hematocrit 38.1 % (35.3-44.9); Mean Corpuscular HGB Conc 31.2 g/dL (31.6-35.5); Mean Corpuscular Hemoglobin 28.1 pg (28.0-33.3); Mean Corpuscular Volume 90.1 fL (83.0-100.0); Mean Platelet Volume 9.8 fL (9.4-12.4); Platelet Count 232 K/mcL (140-400); Red Blood Count 4.23 M/mcL (3.82-4.97); Red Cell Distribution Width 15.2 % (11.5-14.5); White Blood Count 6.4 K/mcL (4.3-11.1)
[2019-10-18 02:00] LABS: Hemoglobin 11.9 g/dL (11.5-15.4)
[2019-10-18 02:17] LABS: BUN/Creatinine Ratio 26 (6-26); Blood Urea Nitrogen 27 mg/dL (8-23); Calcium 9.1 mg/dL (8.6-10.3); Carbon Dioxide 27 mEq/L (23-29); Chloride 103 mEq/L (98-107); Glucose 100 mg/dL (70-105); Osmolality,Calculated 293 (280-300); Sodium 139 mEq/L (136-145); eGFR For African Americans > 60 (> 60); eGFR For Non-African Americans 53 (> 60)
[2019-10-18 07:22] VITALS: BP 156/98
== END 2019-10-18 14:50 | disposition home or self-care (01) | DRG 514 ==
LOC: 3NENU → SUATTDRO 13:13
PROVIDERS: ADMIT Internal Medicine; ATTEND Internal Medicine

== ENCOUNTER 2021-02-19 03:19 | Observation (INO) ==
[2021-02-19] MEDS ORDERED: Orphenadrine 60 MG/2 ML VIAL IM ONE (04:39)
[2021-02-19] MEDS ORDERED: Ketorolac 60 MG/2 ML VIAL IM ONE (04:39)
[2021-02-19] MEDS ORDERED: Ondansetron 4 MG/2 ML VIAL IVP PRN (07:28)
[2021-02-19] MEDS ORDERED: Naloxone 0.4 MG/ML INJ IVP PRN (07:28)
[2021-02-19] MEDS ORDERED: 0.9 % Sodium Chloride 1,000 ML IVC SCH (07:30)
[2021-02-19] MEDS ORDERED: tiZANidine 4 MG TABLET PO PRN (07:36)
[2021-02-19 07:53] LABS: Basophils # 0.1 K/mcL (0.0-0.2); Basophils % 0.7 %; Eosinophils # 0.3 K/mcL (0.0-0.6); Eosinophils % 3.9 %; Hematocrit 44.4 % (35.3-44.9); Hemoglobin 13.9 g/dL (11.5-15.4); Immature Granulocytes % 0.4 % (0-4); Lymphocytes # 1.7 K/mcL (0.6-4.6); Mean Corpuscular HGB Conc 31.3 g/dL (31.6-35.5); Mean Corpuscular Hemoglobin 28.5 pg (28.0-33.3); Mean Corpuscular Volume 91.2 fL (83.0-100.0); Mean Platelet Volume 9.6 fL (9.4-12.4); Monocytes # 0.5 K/mcL (0.0-1.3); Monocytes % 5.3 %; Neutrophils # 5.9 K/mcL (1.6-8.9); Platelet Count 245 K/mcL (140-400); Red Blood Count 4.87 M/mcL (3.82-4.97); Red Cell Distribution Width 14.7 % (11.5-14.5); Segmented Neutrophils % 69.7 %; White Blood Count 8.5 K/mcL (4.3-11.1)
[2021-02-19 08:12] LABS: Prothrombin Time 11.4 Seconds (9.4-12.1)
[2021-02-19 09:52] LABS: BUN/Creatinine Ratio 14 (6-26); Blood Urea Nitrogen 14 mg/dL (8-23); Calcium 9.3 mg/dL (8.6-10.3); Carbon Dioxide 23 mEq/L (23-29); Chloride 107 mEq/L (98-107); Glucose 100 mg/dL (70-105); Osmolality,Calculated 291 (280-300); Potassium 4.4 mEq/L (3.5-5.1); Sodium 140 mEq/L (136-145); eGFR For African Americans > 60 (> 60); eGFR For Non-African Americans 55 (> 60)
[2021-02-19] MEDS: Cholecalciferol (D-3) 1,000 UNIT (25MCG) TABLET PO SCH (10:14)
[2021-02-19] MEDS: Magnesium Oxide 400 MG TABLET PO SCH (10:15)
[2021-02-19] MEDS: Zinc Sulfate 220 MG CAPSULE PO SCH ×3 (10:15→21:39)
[2021-02-19] MEDS: Loratadine 10 MG TABLET PO SCH (10:15)
[2021-02-19 10:16] LABS: C-Reactive Protein < 5 mg/L (Less than 10)
[2021-02-19] MEDS: *HR* Heparin 5,000 UNIT/ML VIAL SQ SCH ×2 (10:16→18:35)
[2021-02-19] MEDS: predniSONE 20 MG TABLET PO SCH (16:04)
[2021-02-19] MEDS ORDERED: rOPINIRole 1 MG TABLET PO SCH (18:00)
[2021-02-19] MEDS ORDERED: NON-FORMULARY MEDICATION 1 EACH EACH (Buspirone Hcl [Buspar] 15 MG Tablet) PO SCH (21:00)
[2021-02-20 04:00] LABS: Basophils # 0.1 K/mcL (0.0-0.2); Basophils % 0.6 %; Eosinophils % 0.2 %; Hematocrit 45.5 % (35.3-44.9); Hemoglobin 14.4 g/dL (11.5-15.4); Immature Granulocytes % 0.9 % (0-4); Lymphocytes # 1.1 K/mcL (0.6-4.6); Lymphocytes % 14.1 %; Mean Corpuscular HGB Conc 31.6 g/dL (31.6-35.5); Mean Corpuscular Hemoglobin 28.3 pg (28.0-33.3); Mean Corpuscular Volume 89.4 fL (83.0-100.0); Mean Platelet Volume 10.8 fL (9.4-12.4); Monocytes # 0.2 K/mcL (0.0-1.3); Monocytes % 2.6 %; Platelet Count 224 K/mcL (140-400); Red Blood Count 5.09 M/mcL (3.82-4.97); Red Cell Distribution Width 14.6 % (11.5-14.5); Segmented Neutrophils % 81.6 %
[2021-02-20 04:02] LABS: Neutrophils # 6.5 K/mcL (1.6-8.9)
[2021-02-20 04:07] LABS: BUN/Creatinine Ratio 17 (6-26); Blood Urea Nitrogen 17 mg/dL (8-23); Calcium 8.8 mg/dL (8.6-10.3); Carbon Dioxide 21 mEq/L (23-29); Chloride 108 mEq/L (98-107); Glucose 126 mg/dL (70-105); Osmolality,Calculated 287 (280-300); Potassium 5.3 mEq/L (3.5-5.1); Sodium 137 mEq/L (136-145); eGFR For African Americans > 60 (> 60); eGFR For Non-African Americans 53 (> 60)
[2021-02-20] MEDS: *HR* Heparin 5,000 UNIT/ML VIAL SQ SCH (06:31)
[2021-02-20 07:11] VITALS: BP 142/93; PULSE 84; TEMP 98.5; O2SAT 90
[2021-02-20] MEDS: Cholecalciferol (D-3) 1,000 UNIT (25MCG) TABLET PO SCH (08:43)
[2021-02-20] MEDS: Magnesium Oxide 400 MG TABLET PO SCH (08:43)
[2021-02-20] MEDS: Zinc Sulfate 220 MG CAPSULE PO SCH (08:44)
[2021-02-20] MEDS: Loratadine 10 MG TABLET PO SCH (08:44)
[2021-02-20] MEDS: predniSONE 20 MG TABLET PO SCH (08:44)
== END 2021-02-20 14:25 | disposition home or self-care (01) ==
LOC: SUATTDRO → EMEROOARM 03:19 → 3NENU 03:19
PROVIDERS: ADMIT Family Medicine; ATTEND Family Medicine